=== PATIENT | female | born 1985 | race Caucasian/White ===

== ENCOUNTER 2018-03-06 03:46 | Inpatient (IN) | payer SELFPAY ==
[~2018-03-06] VITALS: Ht 160 cm; Wt 45.0 kg
[2018-03-06] VITALS (9 sets, daily range): BP systolic 120–136; BP diastolic 70–81; PULSE 68–138; RESP 16–18; TEMP 98.3–101; O2SAT 98–100
--- NOTE | 2018-03-06 04:27 | PD ---
HPI Chief Complaint: Injury Time Seen by Provider: 04:02 Travel History International Travel<30 days: No Contact w/Intl Traveler<30days: No Traveled to known affect area: No History of Present Illness HPI The patient is a 32-year-old female who presents to [facility] emergency department with a history of left knee pain. The patient reports that the left knee pain began between Tuesday and . 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 She reports that she did hit her medial left leg just below the knee on her bed a couple of days prior to having the pain, however she did not have any significant pain at that time. She reports that she did develop a small bruise at the site. She reports that the pain is along the anterior knee she reports that today she began to have swelling associated with it. The patient reports that since Tuesday the pain has been severe. She reports that she is unable to weight-bear on her left knee. She reports that her significant other has been carrying her to the bathroom. She denies any other specific injuries or trauma. She denies any IV drug use. The patient reports that the pain has been constant and sharp in character. She reports that it now is radiating up to her buttock and down past her knee into the calf. She denies having any redness. She denies any prior history of DVT or PE. She denies having any known recent fevers. On review of systems otherwise , she denies having any cough or congestion, neck pain, chest pain, shortness of breath, abdominal pain, vomiting, diarrhea, urinary symptoms, or neurologic symptoms. The patient's last menstrual cycle was reportedly in November 2017. She reports that she normally has regular menstrual cycles, however she has been under increased stress recently which she thinks is causing her irregular cycles. She reports that she did take a test that was negative. The patient reports that she has taken Aleve, ibuprofen, her roommates hydrocodone and Percocet for the pain. [facility] Past Medical History Narrative Medical The patient's past medical history is reportedly none. Medical History: Denies Significant Hx Diminished Hearing: No Tetanus Vaccination: Unknown Influenza Vaccination: No ?: Unknown LMP: unsure when last period was "long time" Past Surgical History Surgical History: No Previous Surgery Social History Alcohol Use: No Tobacco Use: Yes (5 cigarettes per day) Substance Use: Yes (marijauna) Allergies-Medications (Allergen,Severity, Reaction): Coded Allergies: No Known Allergies (Unverified , 03/06/18) Review of Systems Except as stated in HPI: all other systems reviewed are Neg General / Constitutional: No: Fever Eyes: No: Visual changes HENT: No: Headaches Cardiovascular: No: Chest Pain or Discomfort Respiratory: No: Shortness of Breath Gastrointestinal: No: Nausea, Vomiting, Diarrhea, Abdominal Pain Genitourinary: No: Dysuria Musculoskeletal: Positive: Arthralgias, Limited ROM, Edema, Pain Skin: No Rash Neurologic: No: Weakness Psychiatric: No: Depression Endocrine: No: Polydipsia Hematologic/Lymphatic: No: Easy Bruising Physical Exam Narrative General: The patient is a well-developed well-nourished female, tearful on examination, intermittently crying related to left knee pain. Head and Neck exam: Head is normocephalic atraumatic. Eyes: EOMI, pupils are equal round and reactive to light. Nose: Midline septum with pink mucous membranes Mouth: Dentition unremarkable. Moist mucus membranes. Posterior oropharynx is not erythematous. No tonsillar hypertrophy. Uvula midline. Airway patent. Neck: No palpable lymphadenopathy. No nuchal rigidity. No thyromegaly. Cardiovascular: Sinus tachycardia in the 120s without murmurs, gallops, or rubs. No pulse deficit to the extremities on simultaneous auscultation and palpation of her radial artery. Lungs: Clear to auscultation bilaterally. No wheezes, rhonchi, or rales. Abdomen: Soft, without tenderness to palpation in all 4 quadrants of the abdomen. No guarding, rebound, or rigidity. Normal bowel sounds are audible. No tenderness on palpation at McBurney's point. Extremities: No clubbing, cyanosis, or edema. The area of interest is the left knee. The patient has swelling along the medial aspect of the left knee with tenderness on palpation of the distal quadriceps medial aspect. The patient maintains her her leg flexed at the knee and hip holding her leg up against her body. The patient has decreased range of motion with extension of her leg. The patient reports that she cannot extend her leg fully related to pain. 2+ pulses in all 4 extremities. No calf tenderness on palpation. Back: No spinous process tenderness to palpation. No costovertebral angle tenderness to palpation. Neurologic Exam: Grossly nonfocal. Skin Exam: No rash noted. Intact skin that is warm and dry. Data Data Last Documented VS Vital Signs Date Time Temp Pulse Resp B/P (MAP) Pulse Ox O2 Delivery O2 Flow Rate FiO2 03/06/18 03:52 98.4 138 18 136/81 (99) 100 Orders Orders Electrocardiogram (03/06/18 04:13) Complete Blood Count With Diff (03/06/18 04:13) Comprehensive Metabolic Panel (03/06/18 04:13) Creatine Kinase (Cpk) (03/06/18 04:13) Ckmb (Isoenzyme) Profile (03/06/18 04:13) Troponin I (03/06/18 04:13) Prothrombin Time / Inr (Pt) (03/06/18 04:13) Act Partial Throm Time (Ptt) (03/06/18 04:13) C-Reactive Protein (Crp) (03/06/18 04:13) Urinalysis - C+S If Indicated (03/06/18 04:13) Westergren Sedimentation Rate (03/06/18 04:13) Magnesium (Mg) (03/06/18 04:13) Thyroid Stimulating Hormone (03/06/18 04:13) Iv Access Insert/Monitor (03/06/18 04:13) Ecg Monitoring (03/06/18 04:13) Oximetry (03/06/18 04:13) Ed Urine Pregnancytest Poc (03/06/18 04:13) Drug Screen, Random Urine (03/06/18 04:13) Knee, Complete (4vws) (03/06/18 ) Sodium Chlor 0.9% 1000 Ml Inj (Ns 1000 M (03/06/18 04:30) Ketorolac Inj (Toradol Inj) (03/06/18 04:30) Ct Knee W Iv Contrast (03/06/18 ) Urine Culture (03/06/18 05:02) Lactic Acid Sepsis Protocol (03/06/18 06:02) Blood Culture (03/06/18 06:02) Piperacil-Tazo 3.375 Gm Premix (Zosyn 3. (03/06/18 06:15) Vancomycin Inj (Vancomycin Inj) (03/06/18 06:15) Iohexol 350 Inj (Omnipaque 350 Inj) (03/06/18 06:08) Admit Order (Ed Use Only) (03/06/18 06:14) Labs Laboratory Tests Test 03/06/18 04:47 03/06/18 05:02 White Blood Count 26.7 TH/MM3 Red Blood Count 4.28 MIL/MM3 Hemoglobin 12.6 GM/DL Hematocrit 36.9 % Mean Corpuscular Volume 86.2 FL Mean Corpuscular Hemoglobin 29.4 PG Mean Corpuscular Hemoglobin Concent 34.1 % Red Cell Distribution Width 13.2 % Platelet Count 357 TH/MM3 Mean Platelet Volume 9.2 FL Neutrophils (%) (Auto) 88.5 % Lymphocytes (%) (Auto) 3.5 % Monocytes (%) (Auto) 7.9 % Eosinophils (%) (Auto) 0.0 % Basophils (%) (Auto) 0.1 % Neutrophils # (Auto) 23.7 TH/MM3 Lymphocytes # (Auto) 0.9 TH/MM3 Monocytes # (Auto) 2.1 TH/MM3 Eosinophils # (Auto) 0.0 TH/MM3 Basophils # (Auto) 0.0 TH/MM3 CBC Comment DIFF FINAL Differential Comment Erythrocyte Sedimentation Rate 14 mm/hr Prothrombin Time 11.9 SEC Prothromb Time International Ratio 1.2 RATIO Activated Partial Thromboplast Time 31.1 SEC Blood Urea Nitrogen 6 MG/DL Creatinine 0.72 MG/DL Random Glucose 123 MG/DL Total Protein 7.6 GM/DL Albumin 3.8 GM/DL Calcium Level 8.6 MG/DL Magnesium Level 2.0 MG/DL Alkaline Phosphatase 57 U/L Aspartate Amino Transf (AST/SGOT) 8 U/L Alanine Aminotransferase (ALT/SGPT) 14 U/L Total Bilirubin 0.8 MG/DL Sodium Level 139 MEQ/L Potassium Level 3.4 MEQ/L Chloride Level 106 MEQ/L Carbon Dioxide Level 21.7 MEQ/L Anion Gap 11 MEQ/L Estimat Glomerular Filtration Rate 94 ML/MIN Total Creatine Kinase 56 U/L Troponin I LESS THAN 0.02 NG/ML C-Reactive Protein 19.00 MG/DL Thyroid Stimulating Hormone 3rd Gen 1.110 uIU/ML Urine Color YELLOW Urine Turbidity HAZY Urine pH 6.5 Urine Specific [place] 1.022 Urine Protein 30 mg/dL Urine Glucose (UA) 70 mg/dL Urine Ketones TRACE mg/dL Urine Occult Blood NEG Urine Nitrite NEG Urine Bilirubin NEG Urine Urobilinogen 2.0 MG/DL Urine Leukocyte Esterase LARGE Urine RBC 21 /hpf Urine WBC 19 /hpf Urine Squamous Epithelial Cells 36 /hpf Urine Bacteria MOD /hpf Urine Mucus FEW /lpf Microscopic Urinalysis Comment CULTURE INDICATED Urine Opiates Screen POS Urine Barbiturates Screen NEG Urine Amphetamines Screen NEG Urine Benzodiazepines Screen NEG Urine Cocaine Screen POS Urine Cannabinoids Screen NEG MDM Medical Decision Making Medical Screen Exam Complete: Yes Emergency Medical Condition: Yes Medical Record Reviewed: Yes Differential Diagnosis Septic arthritis, versus osteomyelitis, versus internal derangement of the knee , versus tendinitis Narrative Course During the course of the patient's emergency department visit, the patient's history, examination, and differential diagnosis were reviewed with the patient. The patient was placed on a site monitor with oximetry and frequent blood pressure monitoring. The patient had IV access obtained and blood work sent for analysis. A knee x-ray was ordered. The patient was noted to be tachycardic, however it was unclear whether this was related to pain or could be related to an infectious process. The patient had a EKG done on arrival that shows a sinus rhythm with, heart rate of 78, QRS duration 90 ms, QTC [address] segment elevation. Tremulous baseline is noted which could affect interpretation. The patient was initially provided normal saline 1 L IV fluid bolus, Toradol 15 mg IV for pain. The patient's laboratory studies were reviewed and remarkable for a white count of 26.7, hemoglobin 12.6, platelets 357 with 88.5 neutrophils, lymphocytes 3.5. Blood cultures 2 were sent for analysis. The patient was consented for arthrocentesis of the left knee to evaluate for possible underlying septic arthritis, sedimentation rate was 14 decreasing the likelihood of osteomyelitis. CMP is remarkable for a potassium of 3.4, BUN 6, glucose 123, AST 8, cardiac enzymes within normal limits, C-reactive protein is elevated at 19, TSH within normal limits. PT 11.9, INR 1.2, PTT 31.1, urine drug screen is positive for opiates and cocaine, urinalysis shows 30 protein 70 glucose trace ketones large leukocyte esterase 21 RBCs WBCs 19, moderate bacteria, culture indicated. Radiology studies were reviewed and remarkable for a left knee x-ray that shows no acute abnormality. Arthrocentesis of the left knee was done by me. Yellow cloudy fluid was obtained. The patient was then started on broad-spectrum antibiotic. A call has been placed out to the orthopedic physician on-call, Dr. Negron regarding this patient's case. A call has been placed out to the hospitalist for admission. The patient's results were discussed with the patient, including the plan of care. I explained that further testing and/ or monitoring is indicated based on the patient's history, examination, and/ or laboratory findings. Therefore, I recommended admission for additional evaluation. The patient expressed understanding and was agreeable with this plan. The patient was admitted to the hospital in guarded condition and sent to a bed under the care of the [facility] service. I spoke to the physician hearing aid assistant for Dr. Negron. We will see the patient in consultation. The patient's results were discussed with the patient, including the plan of care. I explained that further testing and/ or monitoring is indicated based on the patient's history, examination, and/ or laboratory findings. Therefore, I recommended admission for additional evaluation. The patient expressed understanding and was agreeable with this plan. The patient was admitted to the hospital in guarded condition and sent to a bed under the care of the [facility] service. Critical Care Narrative Aggregate critical care time was 32 minutes. Time to perform other separately billable procedures was not included in the critical care time. My time did not include minutes spent treating any other patients simultaneously or on activities that did not directly contribute to the patient's treatment. The services I provided to this patient were to treat and/or prevent clinically significant deterioration that could result in: Cardiovascular collapse from sepsis, versus fluid overload from crystalloid resuscitation, versus progressive damage to the left knee joint I provided critical care services requiring my management, as noted below: Chart data review, documentation time, medication orders and management, vital sign assessments/reviewing monitor data, ordering and reviewing lab tests, ordering and interpreting/reviewing x-rays and diagnostic studies, care of the patient and discussion of the patient with the admitting physicians. Procedures Procedure Narrative Joint aspiration: The patient consented to left knee arthrocentesis. The patient was placed supine. The patient's medial left knee was prepped with chlorhexidine and the patient was sterilely draped. 1% lidocaine was used to anesthetize superficially over the parapatellar area, medial aspect. A 21- gauge needle was used to aspirate cloudy yellow fluid from the joint space. The patient tolerated the procedure well. A Band-Aid was applied. The patient' s synovial fluid was sent for analysis. Sepsis Criteria SIRS Criteria (2 or more): Heart rate over 90, WBC > 37706, < 4000 or > 10% bands Sepsis Criteria (SIRS+source): Infect source susp/known Criteria Outcome: Meets SIRS criteria, Meets sepsis criteria Physician Communication Physician Communication The patient's case including history, pertinent physical examination findings, and laboratory studies were discussed with Dr. Luis. It [facility] Diagnosis Primary Impression: Left knee pain Qualified Codes: M25.562 - Pain in left knee Additional Impressions: Leukocytosis Qualified Codes: D72.829 - Elevated white blood cell count, unspecified Sepsis Qualified Codes: A41.9 - Sepsis, unspecified organism Admitting Information Admitting Physician Requests: it Virginie Menjivar MD Mar 06, 2018 04:27
[2018-03-06] MEDS ORDERED: SODIUM CHLOR 0.9% 1000 ML INJ 1,000 ML IV ONE (04:30)
[2018-03-06] MEDS ORDERED: KETOROLAC TROMETHAMINE 30 MG/ML (IVP) VIAL IV PUSH ONE (04:30)
--- NOTE | 2018-03-06 05:01 | RADRPT ---
EXAM DATE: 03/06/2018 4:43 AM EDT AGE/SEX: 32 years / Female INDICATIONS: Severe nontraumatic left knee pain over several days. Tonight patient cannot bear the p ain or move the leg. CLINICAL DATA: This is the patient's initial encounter. Patient reports that signs and symptoms have been present for 4 - 6 days and indicates a pain score of 10/10. MEDICAL/SURGICAL HISTORY: None. None. COMPARISON: No prior exams available for comparison. FINDINGS: 4 views of the left knee. Bone alignment within normal limits. No evidence of fracture. No joint narr owing. No evidence of joint effusion. CONCLUSION: Left knee series within normal limits. Electronically signed by: Jose Juan Holloway MD 03/06/2018 4:59 AM EDT
[2018-03-06 05:02] LABS: AUTOMATED NEUTROPHIL # 23.7 TH/MM3 (1.8-7.7); BASOPHIL % 0.1 % (0.0-2.0); HEMATOCRIT 36.9 % (35.0-46.0); HEMOGLOBIN 12.6 GM/DL (11.6-15.3); LYMPH % 3.5 % (9.0-44.0); LYMPHOCYTE # 0.9 TH/MM3 (1.0-4.8); MEAN CELL VOLUME 86.2 FL (80.0-100.0); MEAN CORPUSCULAR HEMOGLOBIN 29.4 PG (27.0-34.0); MEAN CORPUSCULAR HGB CONC 34.1 % (32.0-36.0); MEAN PLATELET VOLUME 9.2 FL (7.0-11.0); MONO % 7.9 % (0.0-8.0); MONOCYTE # 2.1 TH/MM3 (0-0.9); NEUT % 88.5 % (16.0-70.0); PLATELET COUNT 357 TH/MM3 (150-450); RED BLOOD COUNT 4.28 MIL/MM3 (4.00-5.30); RED CELL DISTRIBUTION WIDTH 13.2 % (11.6-17.2); WHITE BLOOD COUNT 26.7 TH/MM3 (4.0-11.0)
[2018-03-06 05:10] LABS: INTERNATIONAL NORMALIZED RATIO 1.2 RATIO; PROTHROMBIN TIME - PATIENT 11.9 SEC (9.8-11.6)
[2018-03-06 05:12] LABS: ALBUMIN 3.8 GM/DL (3.4-5.0); ALT (GPT) 14 U/L (10-53); AST (GOT) 8 U/L (15-37); BICARBONATE 21.7 MEQ/L (21.0-32.0); BLOOD UREA NITROGEN 6 MG/DL (7-18); CALCIUM 8.6 MG/DL (8.5-10.1); CHLORIDE 106 MEQ/L (98-107); CREATININE 0.72 MG/DL (0.50-1.00); GLOMERULAR FILTRATION RATE 94 ML/MIN (>89); GLUCOSE,RANDOM 123 MG/DL (74-106); SODIUM (NA) 139 MEQ/L (136-145)
[2018-03-06 05:12] LABS: BACTERIA, URINE MOD /hpf; BILIRUBIN, URINE NEG (NEG); BLOOD, URINE NEG (NEG); GLUCOSE,URINE 70 mg/dL (NEG); KETONE, URINE TRACE mg/dL (NEG); MUCUS URINE FEW /lpf (OCC); NITRITE,URINE NEG (NEG); PH, URINE 6.5 (5.0-8.5); SQUAMOUS EPITHELIAL CELL URINE 36 /hpf (0-5); URINE COLOR YELLOW (YELLW/STRAW); URINE LEUKOCYTE ESTERASE LARGE (NEG)
[2018-03-06 05:21] LABS: ALKALINE PHOSPHATASE 57 U/L (45-117); TOTAL BILIRUBIN ADULT 0.8 MG/DL (0.2-1.0); TOTAL PROTEIN 7.6 GM/DL (6.4-8.2); TROPONIN I LESS THAN 0.02 NG/ML (0.02-0.05)
[2018-03-06] MEDS ORDERED: IOHEXOL 350 MG/ML 10 ML VIAL (for RAD DIAG) IVCONTRAST ONE (06:08)
[2018-03-06] MEDS ORDERED: MAGNESIUM HYDROXIDE SUSP 30 ML CUP PO PRN (06:15)
[2018-03-06] MEDS ORDERED: BISACODYL 10 MG SUPP RECTAL PRN (06:15)
[2018-03-06] MEDS ORDERED: PIPERACIL-TAZO 3.375 GM PREMIX 50 ML IV ONE (06:15)
[2018-03-06] MEDS ORDERED: METOCLOPRAMIDE HCL 10 MG/2 ML VIAL IV PUSH PRN (06:15)
[2018-03-06] MEDS ORDERED: SODIUM CHLORIDE 0.9% FLUSH 10 ML FLUSH IV FLUSH PRN (06:15)
[2018-03-06] MEDS ORDERED: Vancomycin Consult Pharmacy 1 EA OTHER SCH (06:15)
[2018-03-06] MEDS ORDERED: SENNOSIDES 8.6 MG TAB PO PRN (06:15)
[2018-03-06] MEDS ORDERED: VANCOMYCIN INJ 1,000 MG in SODIUM CHLOR 0.9% 250 ML INJ 250 ML IV ONE (06:15)
[2018-03-06] MEDS ORDERED: LACTULOSE SYRUP 20 GM/30 ML CUP PO PRN (06:15)
--- NOTE | 2018-03-06 06:24 | RADRPT ---
EXAM DATE: 03/06/2018 6:16 AM EDT AGE/SEX: 32 years / Female INDICATIONS: Left knee pain with negative x-rays; rule out osteomyelitis. CLINICAL DATA: This is the patient's initial encounter. Patient reports that signs and symptoms have been present for 2 days and indicates a pain score of 10/10. MEDICAL/SURGICAL HISTORY: None. None. RADIATION DOSE: 7.29 CTDI (mGy) COMPARISON: No prior exams available for comparison. TECHNIQUE: Multiple contiguous axial images were acquired using a multirow detector CT scanner after the intravenous administration of 96 ml Omnipaque 350 (iohexol) nonionic water-soluble contrast as a single exam dose. Multiplanar reconstruction was performed in the sagittal and coronal planes. Usi ng automated exposure control and adjustment of the mA and/or kV according to patient size, radiation dose was kept as low as reasonably achievable to obtain optimal diagnostic quality images. FINDINGS: Bone alignment within normal limits. No evidence of fracture. Small knee joint effusion. Quadriceps tendon and patellar tendon are intact. Cruciate ligaments are grossly intact. Integrity of the menisci cannot be evaluated effectively on CT without intra-articular contrast. CONCLUSION: Trace joint effusion. Otherwise within normal limits. Electronically signed by: Jose Juan Holloway MD 03/06/2018 6:22 AM EDT
[2018-03-06] MEDS: SODIUM CHLOR 0.9% 1000 ML INJ 1,000 ML IV SCH ×2 (06:43→16:10)
[2018-03-06] MEDS: MORPHINE SULFATE 4 MG/ML INJ IV PUSH PRN ×5 (06:43→22:04)
[2018-03-06] MEDS: ACETAMINOPHEN 325 MG TAB PO PRN (06:45)
[2018-03-06 08:07] LABS: WBC, SYNOVIAL FLUID 31200 /MM3 (0-200)
[2018-03-06] MEDS ORDERED: POTASSIUM CHLORIDE 10 MEQ CONTROLLED RELEASE TAB PO ONE (08:15)
[2018-03-06] MEDS: DOCUSATE SODIUM 50 MG/SENNA 8.6 MG TAB PO SCH ×2 (08:37→20:30)
[2018-03-06] MEDS: SODIUM CHLORIDE 0.9% FLUSH 10 ML FLUSH IV FLUSH SCH ×2 (08:52→20:30)
[2018-03-06] MEDS ORDERED: METOPROLOL TARTRATE 25 MG TAB PO PRN (09:30)
[2018-03-06] MEDS ORDERED: INSULIN HUMAN REGULAR 1,000 UNITS/10 ML VIAL SQ PRN (09:30)
[2018-03-06] MEDS ORDERED: POVIDONE IODINE 5% (ANTISEPSIS KIT) 4 APPLICATIONS EACH NARE PRN (09:30)
[2018-03-06] MEDS ORDERED: CHLORHEXIDINE GLUCONATE 2 % 1 PACK (2 CLOTHS) TOPICAL PRN (09:30)
[2018-03-06] MEDS ORDERED: SODIUM CHLORID 0.9% 500 ML IV PRN (09:30)
[2018-03-06] MEDS ORDERED: LACTATED RINGER'S 1000 ML IV PRN (09:30)
--- NOTE | 2018-03-06 10:35 | HHI.HP ---
[facility] No Primary Care Physician Admission Diagnosis left knee pain r/o septic arthritis, sepsis Diagnoses: Chief Complaint: Left knee pain Travel History International Travel<30 Days: No Contact w/Intl Traveler <30 Da: No Traveled to Known Affected Are: No Sepsis Criteria SIRS Criteria (2 or more): Temp > 100.9 or < 96.8, Heart rate over 90, WBC > 87624, < 4000 or > 10% bands Sepsis Criteria (SIRS+source): Infect source susp/known Criteria Outcome: Meets sepsis criteria History of Present Illness This is a 33-year-old female who presents to the emergency room complaining of left knee pain. 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 Over the past several days, her left knee pain has worsened temporarily relieved with icing and elevation. It is severe that she is unable to bear weight. She denies IV drug use but admits to marijuana and cocaine. 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 Does not remember recent significant trauma or sustaining an open wound. Reports of low-grade fever. In the emergency department, joint aspiration was performed with cloudy yellow aspirate. She was then given IV vancomycin and Zosyn. Currently seen in the preop area awaiting orthopedic intervention. All other systems reviewed negative Review of Systems Except as stated in HPI: all other systems reviewed are Neg Past Family Social History Past Medical History Denies. LMP sometime in November. She did do tests 1 month apart both negative last performed over a month ago Past Surgical History Denies Reported Medications None except OTC Allergies: Coded Allergies: No Known Allergies (Unverified , 03/06/18) Family History No CAd or CVA Social History Occasional alcohol and tobacco use Physical Exam Vital Signs Vital Signs Date Time Temp Pulse Resp B/P (MAP) Pulse Ox O2 Delivery O2 Flow Rate FiO2 03/06/18 09:00 99.0 74 18 121/70 (87) 98 03/06/18 07:50 99.8 84 16 120/77 (91) 100 03/06/18 07:20 82 16 100 Room Air 03/06/18 07:20 100.0 82 16 122/80 (94) 100 Room Air 03/06/18 07:15 16 03/06/18 06:43 101.0 98 18 122/73 (89) 98 Room Air 03/06/18 03:52 98.4 138 18 136/81 (99) 100 Physical Exam GENERAL: This is a well-nourished, well-developed patient, in no apparent distress. SKIN: No rashes, ecchymoses or lesions. Cool and dry. HEAD: Atraumatic. Normocephalic. No temporal or scalp tenderness. EYES: Pupils equal round and reactive. Extraocular motions intact. No scleral icterus. No injection or drainage. ENT: Nose without bleeding, purulent drainage or septal hematoma. Throat without erythema, tonsillar hypertrophy or exudate. Uvula midline. Airway patent. NECK: Trachea midline. No JVD or lymphadenopathy. Supple, nontender, no meningeal signs. CARDIOVASCULAR: Regular rate and rhythm without murmurs, gallops, or rubs. RESPIRATORY: Clear to auscultation. Breath sounds equal bilaterally. No wheezes , rales, or rhonchi. GASTROINTESTINAL: Abdomen soft, non-tender, nondistended. No guarding. MUSCULOSKELETAL: Extremities without clubbing, cyanosis, or edema. Left knee slightly swollen over medial aspect with decreased range of motion with extension and flexion NEUROLOGICAL: Awake and alert. Cranial nerves II through XII intact. Motor and sensory grossly within normal limits. Five out of 5 muscle strength in all muscle groups. Normal speech. Laboratory Laboratory Tests Test 03/06/18 04:47 03/06/18 05:02 03/06/18 06:34 03/06/18 06:40 White Blood Count 26.7 Red Blood Count 4.28 Hemoglobin 12.6 Hematocrit 36.9 Mean Corpuscular Volume 86.2 Mean Corpuscular Hemoglobin 29.4 Mean Corpuscular Hemoglobin Concent 34.1 Red Cell Distribution Width 13.2 Platelet Count 357 Mean Platelet Volume 9.2 Neutrophils (%) (Auto) 88.5 Lymphocytes (%) (Auto) 3.5 Monocytes (%) (Auto) 7.9 Eosinophils (%) (Auto) 0.0 Basophils (%) (Auto) 0.1 Neutrophils # (Auto) 23.7 Lymphocytes # (Auto) 0.9 Monocytes # (Auto) 2.1 Eosinophils # (Auto) 0.0 Basophils # (Auto) 0.0 CBC Comment DIFF FINAL Differential Comment Erythrocyte Sedimentation Rate 14 Prothrombin Time 11.9 Prothromb Time International Ratio 1.2 Activated Partial Thromboplast Time 31.1 Blood Urea Nitrogen 6 Creatinine 0.72 Random Glucose 123 Total Protein 7.6 Albumin 3.8 Calcium Level 8.6 Magnesium Level 2.0 Alkaline Phosphatase 57 Aspartate Amino Transf (AST/SGOT) 8 Alanine Aminotransferase (ALT/SGPT) 14 Total Bilirubin 0.8 Sodium Level 139 Potassium Level 3.4 Chloride Level 106 Carbon Dioxide Level 21.7 Anion Gap 11 Estimat Glomerular Filtration Rate 94 Total Creatine Kinase 56 Troponin I LESS THAN 0.02 C-Reactive Protein 19.00 Thyroid Stimulating Hormone 3rd Gen 1.110 Urine Color YELLOW Urine Turbidity HAZY Urine pH 6.5 Urine Specific [place] 1.022 Urine Protein 30 Urine Glucose (UA) 70 Urine Ketones TRACE Urine Occult Blood NEG Urine Nitrite NEG Urine Bilirubin NEG Urine Urobilinogen 2.0 Urine Leukocyte Esterase LARGE Urine RBC 21 Urine WBC 19 Urine Squamous Epithelial Cells 36 Urine Bacteria MOD Urine Mucus FEW Microscopic Urinalysis Comment CULTURE INDICATED Urine Opiates Screen POS Urine Barbiturates Screen NEG Urine Amphetamines Screen NEG Urine Benzodiazepines Screen NEG Urine Cocaine Screen POS Urine Cannabinoids Screen NEG Synovial Fluid Color YELLOW Synovial Fluid Appearance MARKED Synovial Fluid WBC 60670 Synovial Fluid RBC 440 Synovial Fluid Neutrophils 90 Synovial Fluid Lymphocytes 0 Synovial Fluid Monocytes 5 Synovial Fluid Histiocytes 5 Synovial Fluid Crystals NONE Lactic Acid Level 0.8 Date/Time Source Procedure Growth Status 03/06/18 06:40 Blood Peripheral Aerobic Blood Culture Pending Received 03/06/18 06:40 Blood Peripheral Anaerobic Blood Culture Pending Received 03/06/18 06:34 Fluid Synovial Fluid Gram Stain - Final Resulted 03/06/18 06:34 Fluid Synovial Fluid Body Fluid Culture Pending Resulted 03/06/18 05:02 Urine Random Urine Urine Culture Pending Received Result Diagram: 03/06/18 0447 03/06/18 0447 Caprini VTE Risk Assessment Caprini VTE Risk Assessment: No/Low Risk (score <= 1) Caprini Risk Assessment Model Point Value = 1 Point Value = 2 Point Value = 3 Point Value = 5 Age 41-60 Minor surgery BMI > 25 kg/m2 Swollen legs Varicose veins or History of unexplained or recurrent spontaneous Oral contraceptives or hormone replacement Sepsis (< 1 month) Serious lung disease, including pneumonia (< 1 month) Abnormal pulmonary function Acute myocardial infarction Congestive heart failure (< 1 month) History of inflammatory bowel disease Medical patient at bed rest Age 61-74 Arthroscopic surgery Major open surgery (> 45 min) Laparoscopic surgery (> 45 min) Malignancy Confined to bed (> 72 hours) Immobilizing plaster cast Central venous access Age >= 75 History of VTE Family history of VTE Factor V Leiden Prothrombin [id number] Lupus anticoagulant Anticardiolipin antibodies Elevated serum homocysteine Heparin-induced thrombocytopenia Other congenital or acquired thrombophilia Stroke (< 1 month) Elective arthroplasty Hip, pelvis, or leg fracture Acute spinal cord injury (< 1 month) Prophylaxis Regimen Total Risk Factor Score Risk Level Prophylaxis Regimen 0-1 Low Early ambulation 2 Moderate Order ONE of the following: *Sequential Compression Device (SCD) *Heparin 5000 units SQ BID 3-4 Higher Order ONE of the following medications: *Heparin 5000 units SQ TID *Enoxaparin/Lovenox 40 mg SQ daily (WT < 150 kg, CrCl > 30 mL/min) *Enoxaparin/Lovenox 30 mg SQ daily (WT < 150 kg, CrCl > 10-29 mL/min) *Enoxaparin/Lovenox 30 mg SQ BID (WT < 150 kg, CrCl > 30 mL/min) AND/OR *Sequential Compression Device (SCD) 5 or more Highest Order ONE of the following medications: *Heparin 5000 units SQ TID (Preferred with Epidurals) *Enoxaparin/Lovenox 40 mg SQ daily (WT < 150 kg, CrCl > 30 mL/min) *Enoxaparin/Lovenox 30 mg SQ daily (WT < 150 kg, CrCl > 10-29 mL/min) *Enoxaparin/Lovenox 30 mg SQ BID (WT < 150 kg, CrCl > 30 mL/min) AND *Sequential Compression Device (SCD) Assessment and Plan Problem List: (1) Sepsis ICD Code: A41.9 - Sepsis, unspecified organism Status: Acute (2) Left knee pain ICD Code: M25.562 - Pain in left knee Status: Acute Assessment and Plan This is a 33-year-old female who presents to the emergency room complaining of left knee pain and swelling with decreased range of motion. She also has fever. In the emergency department, joint aspiration was performed with cloudy yellow aspirate. Septic left knee joint. Some level fluid WBC over 31,000. Continue IV vancomycin and cefepime and pain management with oxycodone and morphine sulfate. Patient counseled regarding narcotics. Orthopedic surgery for washout. Follow-up cultures. Consider infectious disease consultation Hypokalemia. Replace with 30 mEq p.o. potassium 1. Abnormal urinalysis. No UTI symptoms. Follow-up urine culture Polysubstance abuse. Counseled DVT prophylaxis with SCD and early ambulation Discussed Condition With pt Problem Qualifiers (1) Sepsis: Qualified Codes: A41.9 - Sepsis, unspecified organism (2) Left knee pain: Qualified Codes: M25.562 - Pain in left knee Liban Schulz MD Mar 06, 2018 10:35
--- NOTE | 2018-03-06 11:10 | MB ---
cc: Rodrigo Negron MD DATE: 03/06/2018 REASON FOR CONSULTATION: Probable septic left knee. REFERRING PHYSICIAN: Dr. Schulz HISTORY OF PRESENT ILLNESS: Marianne is a 33-year-old female who presented to the emergency room complaining of severe left knee pain. She has had intermittent knee pain in the past. She has had increasing knee pain over the past 5 days. Over the past 2 days, the pain has been severe. She has been unable to stand. She is unable to bend her knee or straighten it out. She is keeping her knee in a flexed position because of pain. She reports a low-grade fever. She denies a history of IV drug use. She did have a knee aspirate in the emergency department. This was negative for crystals and did have elevated white blood cell count. She is currently awake and alert in the emergency department. Her only complaint is her left knee. She denies any traumatic injuries. PAST MEDICAL HISTORY: ILLNESSES: None. ALLERGIES: NONE. MEDICATIONS: None. SURGERIES: None. SOCIAL HISTORY: The patient drinks alcohol. She did test positive for cocaine. She does use tobacco. FAMILY HISTORY: Noncontributory. REVIEW OF SYSTEMS: The patient denies headache, visual changes, neck pain, chest pain, abdominal pain, nausea, vomiting, recent weight loss or numbness or tingling of extremities. She complains of left knee pain. The pain is progressively worsening. She also complains of low-grade subjective fevers. LABORATORY DATA: The patient has white blood cell count of 26.7 with a sedimentation rate of 14. INR is 1.2. C-reactive protein is 19. Potassium 3.4. Synovial fluid from left knee is negative for crystals and has 31,000 white blood cells. IMAGING STUDIES: X-rays and CT scan of the left knee were reviewed. There is no evidence of acute fracture or injury. There is a small effusion noted. PHYSICAL EXAMINATION: GENERAL: A thin 32-year-old female. She is awake and alert. She is anxious. She is crying and states that she is in severe pain. VITAL SIGNS: Temperature 99.0, pulse 74, respirations 18, blood pressure 121/70, O2 saturation 98% on room air. HEENT: Head: The patient is normocephalic. Pupils are equal. NECK: Soft, nontender. The trachea is in the midline. ABDOMEN: Soft, nontender, nondistended. EXTREMITIES: Examination of bilateral upper extremities reveals no pain with shoulder, elbow or wrist motion. Skin is intact to both hands: Radial pulses are palpable. Sensation intact in all fingers. Examination of right leg reveals no pain with hip, knee or ankle motion. Skin is intact. Dorsalis pedis pulse is palpable. Sensation intact. Examination of left leg reveals no pain with hip or ankle motion. Skin is intact. Dorsalis pedis pulse is palpable. Examination of her knee reveals essentially no motion. She has had her knee in a flexed position to 90 degrees. She will not straighten or extend her knee secondary to pain. Her knee is slightly warm. There is a small effusion noted. IMPRESSION: Left knee pain with swelling. PLAN: Treatment options were discussed with the patient. At this point, it is not clear that is the source of her pain. It is quite possible that she has a knee infection. I explained to her that we would not know for sure if she has an infection of the knee for probably 2 days. She states that she would prefer to go ahead with surgery for irrigation and debridement, even though we are not certain that she truly has an infection. The risks of surgery include bleeding, infection, injuries to arteries, nerves or blood vessels, recurrent infection, as well as medical complications associated with anesthesia were discussed. All questions were answered. I will plan on surgery for irrigation and debridement with arthrotomy of left knee today. A mid-level provider in my office, nurse practitioner or PA, may see this patient on a follow-up basis and continue to implement the objective of this plan including: Starting or adjusting medications, injections of muscle, tendon, bursa or joints, cast application, orthotic or brace application, physical therapy, further radiographic studies including x-ray, MRI, CT, ultrasounds or bone scan, vascular studies, neurologic studies, or other specialist consultations, and proceeding with surgical management as appropriate. MD VIKTOR Chacko/RACQUEL , 10:52 AM , 11:09 AM
[2018-03-06] MEDS ORDERED: GENTAMICIN SULFATE 80 MG/2 ML VIAL ONE (11:17)
[2018-03-06] MEDS ORDERED: ceFAZolin INJ 1,000 MG VIAL ONE (11:18)
[2018-03-06] MEDS ORDERED: ACETAMINOPHEN 1000 MG/100 ML 100 ML IV ONE (11:24)
[2018-03-06] MEDS ORDERED: HYDROmorphone HCL PF 2 MG/ML VIAL ONE (11:25)
--- NOTE | 2018-03-06 11:58 | PD.OP ---
cc: Rodrigo Choudhury MD Operative Report Date of Surgery: Mar 06, 2018 Preoperative Diagnosis: Probable septic arthritis left knee Postoperative Diagnosis: Procedure: Left knee arthrotomy with irrigation and debridement Anesthesia: General Surgeon: Rodrigo Choudhury Sugarcane Research Technician(s): Saul Chan PA-C The surgical procedure was assisted by my physician assistant vice president. My P.A. presence was necessary throughout this case for the manipulation and positioning of the surgical extremity. My P.A. was assisting me throughout the duration of this procedure. The skill set of a physician assistant vice president was medically necessary to complete this procedure. During the surgical case the medical or surgical instrument maker was working at the back table and the physician assistant vice president was directly assisting me. Operation and Findings: Patient was seen and evaluated preoperatively. Patient was found to have probable infection of the left knee joint. Knee effusion and erythema were noted. Left knee aspiration revealed elevated white blood cell count with no crystals. Patient had a very elevated C-reactive protein. Informed consent was obtained after detailed discussion of risk and benefits of surgery. Operative site was marked. Patient was brought to the operating room. IV sedation and GETA were administered by anesthesiologist. Operative leg was prepped with alcohol followed by Hibiclens and draped in usual sterile fashion. Timeout procedure was performed. Procedure began with a 3 cm incision over the lateral knee. Subcutaneous tissue dissected with Bovie. Iliotibial band was opened in line with fibers. The joint was now opened through arthrotomy. A moderate volume of purulent appearing fluid was found within the knee. Specimen was obtained for cultures and sensitivities. The knee joint was manipulated. The knee joint was palpated and loculations were manually debrided. A portion of the synovium was excised. After excisional debridement was complete, the wound was thoroughly irrigated with sterile saline. At this point the wound was clean. Capsule was closed with #1 PDS, Subcutaneous tissues closed with 3-0 PDS and skin was closed with 3-0 nylon. A DONNY drain was placed into the wound. Sterile dressings were applied. Patient was awakened and transferred to recovery in stable condition. Needle and sponge counts were correct Rodrigo Choudhury MD Mar 06, 2018 11:58
[2018-03-06] MEDS ORDERED: diphenhydrAMINE HCL 25 MG CAP PO PRN (12:00)
[2018-03-06] MEDS ORDERED: DEXAMETHASONE SOD PHOS 4 MG/ML VIAL IV ONE (12:00)
[2018-03-06] MEDS ORDERED: SUCCINYLCHOLINE CHLORIDE 200 MG/10 ML VIAL IV ONE (12:00)
[2018-03-06] MEDS ORDERED: PROPOFOL 200 MG/20 ML AMP IV ONE (12:00)
[2018-03-06] MEDS ORDERED: LIDOCAINE HCL 1% PF 5 ML SYRINGE OTHER ONE (12:00)
[2018-03-06] MEDS ORDERED: ROCURONIUM INJ 50 MG/5 ML SYRINGE IV PUSH ONE (12:00)
[2018-03-06] MEDS ORDERED: SODIUM CHLORID 0.9% 500 ML INJ 500 ML IV ONE (12:00)
[2018-03-06] MEDS ORDERED: Post-op Orders (for Pharmacy) XX ONE (12:00)
[2018-03-06] MEDS ORDERED: *morphine SULFATE 4 MG/ML PERIprocedure ONLY ONE ×2 (12:17→12:27)
[2018-03-06] MEDS ORDERED: MORPHINE SULFATE 4 MG/ML INJ ONE (12:21)
[2018-03-06] MEDS ORDERED: ONDANSETRON ODT 4 MG TAB PO PRN (12:30)
--- NOTE | 2018-03-06 14:44 | EKG ---
Date Performed: 03/06/2018 Time Performed: 04:46:03 PTAGE: 32 years EKG: Sinus rhythm WITH SINUS ARRHYTHMIA WITH SHORT MI INTERVAL Baseline artifact is present BORDERLINE ECG NO PREVIOUS TRACING DOCTOR: Musa Dillon Interpretating Date/Time 03/06/2018 14:42:28
[2018-03-06] MEDS: CEFEPIME INJ 1,000 MG in SODIUM CHLORIDE 0.9% INJ 100 ML IV SCH (20:30)
[2018-03-06] MEDS ORDERED: MORPHINE SULFATE 4 MG/ML INJ IV PUSH ONE (22:15)
[2018-03-06] MEDS: VANCOMYCIN INJ 750 MG in SODIUM CHLOR 0.9% 250 ML INJ 250 ML IV SCH (22:44)
[2018-03-07] VITALS (10 sets, daily range): BP systolic 117–132; BP diastolic 71–81; PULSE 67–93; RESP 16–18; TEMP 98.3–99.8; O2SAT 99–100
[2018-03-07] MEDS: SODIUM CHLOR 0.9% 1000 ML INJ 1,000 ML IV SCH ×4 (01:19→22:30)
[2018-03-07] MEDS: MORPHINE SULFATE 4 MG/ML INJ IV PUSH PRN ×5 (02:33→22:30)
[2018-03-07] MEDS: ACETAMINOPHEN 325 MG TAB PO PRN (04:39)
[2018-03-07] MEDS ORDERED: ACETAMINOPHEN/HYDROcodone 325 MG/5 MG TAB PO PRN (07:00)
--- NOTE | 2018-03-07 07:02 | PD.ORT.PN ---
Subjective Subjective Remarks POD 1 s/p I&D left knee reports significant pain in left knee Objective Vitals Vital Signs Date Time Temp Pulse Resp B/P (MAP) Pulse Ox O2 Delivery O2 Flow Rate FiO2 03/07/18 04:29 99.4 75 16 121/72 (88) 100 03/07/18 00:30 99.8 75 16 128/78 (95) 99 03/07/18 00:18 73 03/06/18 19:57 99.4 79 16 121/79 (93) 98 03/06/18 16:32 83 03/06/18 16:06 98.3 68 16 120/75 (90) 98 03/06/18 12:50 98.4 78 15 119/76 (90) 97 Room Air 03/06/18 12:48 73 03/06/18 12:30 74 15 130/85 (100) 98 Room Air 03/06/18 12:15 98.3 82 15 119/81 (94) 100 Room Air 03/06/18 09:00 99.0 74 18 121/70 (87) 98 03/06/18 07:50 99.8 84 16 120/77 (91) 100 03/06/18 07:20 82 16 100 Room Air 03/06/18 07:20 100.0 82 16 122/80 (94) 100 Room Air 03/06/18 07:15 16 I/O 03/06/18 03/06/18 03/06/18 03/07/18 03/07/18 03/07/18 07:00 15:00 23:00 07:00 15:00 23:00 Intake Total 1000 ml 1300 ml Output Total 10 ml Balance 1000 ml 1290 ml Intake IV Total 1000 ml 300 ml Other 1000 ml Output Estimated Blood Loss 10 ml # Voids 1 1 Result Diagram: 03/06/18 0447 03/06/18 0447 Objective Remarks LLE: dressings clean and dry. itnact. NVI. +drain with significant drainage Assessment & Plan Assessment and Plan 1) Left Knee I&D - POD 1 -WBAT -ROM -maintain drain -awaiting cultures -pain control Saul Chan/Transmission Maintenance Supervisor ANTOINE Mar 07, 2018 07:02
[2018-03-07] MEDS: SODIUM CHLORIDE 0.9% FLUSH 10 ML FLUSH IV FLUSH SCH ×2 (07:28→21:24)
--- NOTE | 2018-03-07 07:29 | HHI.PR ---
Subjective Remarks F/u left knee pain. C/o knee pain requiring narcs. Also complaining of not able to sleep from frequent nursing intervention Objective Vitals Vital Signs Date Time Temp Pulse Resp B/P (MAP) Pulse Ox O2 Delivery O2 Flow Rate FiO2 03/07/18 04:29 99.4 75 16 121/72 (88) 100 03/07/18 00:30 99.8 75 16 128/78 (95) 99 03/07/18 00:18 73 03/06/18 19:57 99.4 79 16 121/79 (93) 98 03/06/18 16:32 83 03/06/18 16:06 98.3 68 16 120/75 (90) 98 03/06/18 12:50 98.4 78 15 119/76 (90) 97 Room Air 03/06/18 12:48 73 03/06/18 12:30 74 15 130/85 (100) 98 Room Air 03/06/18 12:15 98.3 82 15 119/81 (94) 100 Room Air 03/06/18 09:00 99.0 74 18 121/70 (87) 98 03/06/18 07:50 99.8 84 16 120/77 (91) 100 I/O 03/06/18 03/06/18 03/06/18 03/07/18 03/07/18 03/07/18 07:00 15:00 23:00 07:00 15:00 23:00 Intake Total 1000 ml 1300 ml Output Total 10 ml Balance 1000 ml 1290 ml Intake IV Total 1000 ml 300 ml Other 1000 ml Output Estimated Blood Loss 10 ml # Voids 1 1 Result Diagram: 03/06/18 0447 03/06/18 0447 Imaging Last Impressions Lower Extremity CT 03/06/18 0000 Signed Impressions: CONCLUSION: Trace joint effusion. Otherwise within normal limits. Knee X-Ray 03/06/18 0000 Signed Impressions: CONCLUSION: Left knee series within normal limits. Objective Remarks GENERAL: This is a well-nourished, well-developed patient, in no apparent distress. SKIN: No rashes, ecchymoses or lesions. Cool and dry. CARDIOVASCULAR: Regular rate and rhythm without murmurs, gallops, or rubs. RESPIRATORY: Clear to auscultation. Breath sounds equal bilaterally. No wheezes , rales, or rhonchi. GASTROINTESTINAL: Abdomen soft, non-tender, nondistended. No guarding. MUSCULOSKELETAL: Extremities without clubbing, cyanosis, or edema. Left knee with dry dressing NEUROLOGICAL: Awake and alert. Cranial nerves II through XII intact. Motor and sensory grossly within normal limits. Five out of 5 muscle strength in all muscle groups. Normal speech. Procedures I and D left knee Reason for Continuation Last Impressions Lower Extremity CT 03/06/18 0000 Signed Impressions: CONCLUSION: Trace joint effusion. Otherwise within normal limits. Knee X-Ray 03/06/18 0000 Signed Impressions: CONCLUSION: Left knee series within normal limits. A/P Problem List: (1) Sepsis ICD Code: A41.9 - Sepsis, unspecified organism Status: Acute (2) Left knee pain ICD Code: M25.562 - Pain in left knee Status: Acute Assessment and Plan This is a 33-year-old female who presents to the emergency room complaining of left knee pain and swelling with decreased range of motion. She also has fever. In the emergency department, joint aspiration was performed with cloudy yellow aspirate. Likely Septic joint, left knee. Synovial fluid WBC over 31,000. Continue IV vancomycin and cefepime and pain management with hydrocodone and morphine sulfate. Patient counseled regarding narcotics. Wd care. Follow-up cultures. Gram-positive cocci bacteremia. Continue IV vancomycin and consult infectious disease Hypokalemia. Replace with 30 mEq p.o. potassium 1. Abnormal urinalysis. No UTI symptoms. Follow-up urine culture Polysubstance abuse. Counseled DVT prophylaxis with SCD and early ambulation Problem Qualifiers (1) Sepsis: Qualified Codes: A41.9 - Sepsis, unspecified organism (2) Left knee pain: Qualified Codes: M25.562 - Pain in left knee Liban Schulz MD Mar 07, 2018 07:29
[2018-03-07 07:49] LABS: AUTOMATED NEUTROPHIL # 17.8 TH/MM3 (1.8-7.7); BASOPHIL % 0.1 % (0.0-2.0); HEMATOCRIT 32.3 % (35.0-46.0); HEMOGLOBIN 10.6 GM/DL (11.6-15.3); LYMPH % 5.3 % (9.0-44.0); LYMPHOCYTE # 1.1 TH/MM3 (1.0-4.8); MEAN CELL VOLUME 86.6 FL (80.0-100.0); MEAN CORPUSCULAR HEMOGLOBIN 28.5 PG (27.0-34.0); MEAN CORPUSCULAR HGB CONC 32.9 % (32.0-36.0); MEAN PLATELET VOLUME 8.9 FL (7.0-11.0); MONO % 8.4 % (0.0-8.0); MONOCYTE # 1.7 TH/MM3 (0-0.9); NEUT % 86.2 % (16.0-70.0); PLATELET COUNT 263 TH/MM3 (150-450); RED BLOOD COUNT 3.73 MIL/MM3 (4.00-5.30); WHITE BLOOD COUNT 20.7 TH/MM3 (4.0-11.0)
[2018-03-07 07:58] LABS: ALBUMIN 2.8 GM/DL (3.4-5.0); ALT (GPT) 14 U/L (10-53); AST (GOT) 7 U/L (15-37); BICARBONATE 24.2 MEQ/L (21.0-32.0); BLOOD UREA NITROGEN 6 MG/DL (7-18); CALCIUM 8.3 MG/DL (8.5-10.1); CHLORIDE 107 MEQ/L (98-107); CREATININE 0.51 MG/DL (0.50-1.00); GLOMERULAR FILTRATION RATE 140 ML/MIN (>89); GLUCOSE,RANDOM 131 MG/DL (74-106); SODIUM (NA) 140 MEQ/L (136-145)
[2018-03-07 08:01] LABS: ALKALINE PHOSPHATASE 70 U/L (45-117); TOTAL BILIRUBIN ADULT 0.6 MG/DL (0.2-1.0); TOTAL PROTEIN 6.4 GM/DL (6.4-8.2)
[2018-03-07] MEDS: ACETAMINOPHEN/HYDROcodone 325 MG/7.5 MG TAB PO PRN ×4 (08:44→21:24)
[2018-03-07] MEDS: DOCUSATE SODIUM 50 MG/SENNA 8.6 MG TAB PO SCH ×2 (08:44→21:24)
[2018-03-07] MEDS: CEFEPIME INJ 1,000 MG in SODIUM CHLORIDE 0.9% INJ 100 ML IV SCH ×2 (08:45→21:24)
[2018-03-07] MEDS ORDERED: POTASSIUM CHLORIDE 10 MEQ CONTROLLED RELEASE TAB PO ONE (10:30)
[2018-03-07] MEDS: VANCOMYCIN INJ 750 MG in SODIUM CHLOR 0.9% 250 ML INJ 250 ML IV SCH ×2 (11:13→23:13)
[2018-03-07] MEDS ORDERED: PHARMACY ORDERED LAB ONE (22:45)
[2018-03-07] MEDS ORDERED: MELATONIN 5 MG TAB PO ONE (23:00)
[2018-03-08] VITALS (9 sets, daily range): BP systolic 115–158; BP diastolic 65–84; PULSE 71–116; RESP 16–18; TEMP 98.8–99.9; O2SAT 98–100
[2018-03-08] MEDS: ACETAMINOPHEN/HYDROcodone 325 MG/7.5 MG TAB PO PRN ×5 (01:04→19:59)
[2018-03-08] MEDS: MORPHINE SULFATE 4 MG/ML INJ IV PUSH PRN ×3 (03:33→11:23)
[2018-03-08] MEDS: SODIUM CHLOR 0.9% 1000 ML INJ 1,000 ML IV SCH ×2 (07:33→13:58)
[2018-03-08] MEDS: SODIUM CHLORIDE 0.9% FLUSH 10 ML FLUSH IV FLUSH SCH ×2 (07:34→19:59)
[2018-03-08] MEDS: CEFEPIME INJ 1,000 MG in SODIUM CHLORIDE 0.9% INJ 100 ML IV SCH (07:34)
[2018-03-08] MEDS: DOCUSATE SODIUM 50 MG/SENNA 8.6 MG TAB PO SCH ×2 (07:34→19:59)
[2018-03-08] MEDS: VANCOMYCIN INJ 750 MG in SODIUM CHLOR 0.9% 250 ML INJ 250 ML IV SCH (11:23)
[2018-03-08] MEDS ORDERED: IBUPROFEN 600 MG TAB PO PRN (12:45)
--- NOTE | 2018-03-08 14:39 | HHI.PR ---
Subjective Remarks This is a 33-year-old female who presents to the emergency room complaining of left knee pain. 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 Over the past several days, her left knee pain has worsened temporarily relieved with icing and elevation. It is severe that she is unable to bear weight. She denies IV drug use but admits to marijuana and cocaine. No history of STD or HOT TAMALE MAN complaints. Does not remember recent significant trauma or sustaining an open wound. Reports of low-grade fever. In the emergency department, joint aspiration was performed with cloudy yellow aspirate. She was then given IV vancomycin and Zosyn. Currently seen in the preop area awaiting orthopedic intervention. All other systems reviewed negative 6-12 F/u left knee pain. C/o knee pain requiring narcs. Also complaining of not able to sleep from frequent nursing intervention 03-08 COMPLAINS OF PAIN IN LEFT KNEE DW ID AND RN AND CM AND PT WANTS IBUPROFEN PLUS NORCO AND MORPHINE FOR PAIN WILL ADD SCHEDULED IBUPROFEN DW RN AND PT Objective Vitals Vital Signs Date Time Temp Pulse Resp B/P (MAP) Pulse Ox O2 Delivery O2 Flow Rate FiO2 03/08/18 14:23 71 03/08/18 12:00 99.3 71 18 134/75 (94) 99 03/08/18 09:09 72 03/08/18 08:00 99.9 76 16 132/82 (99) 98 03/08/18 04:18 75 03/08/18 04:00 98.9 76 18 153/84 (107) 100 03/08/18 00:00 99.2 116 18 158/76 (103) 99 03/07/18 20:00 98.3 93 18 132/71 (91) 99 03/07/18 17:47 99.2 72 18 126/79 (95) 100 03/07/18 16:09 67 I/O 03/07/18 03/07/18 03/07/18 03/08/18 03/08/18 03/08/18 07:00 15:00 23:00 07:00 15:00 23:00 Intake Total 1357.5 ml 1062 ml 1450 ml 100 ml Output Total 40 ml 40 ml Balance 1317.5 ml 1062 ml 1410 ml 100 ml Intake IV Total 1357.5 ml 1062 ml 1450 ml 100 ml Output Drainage Total 40 ml 40 ml # Voids 5 # Bowel Movements 1 Result Diagram: 03/07/18 0650 03/07/18 0650 Other Results Laboratory Tests Test 03/06/18 04:47 03/06/18 05:02 03/06/18 06:34 03/06/18 06:40 White Blood Count 26.7 TH/MM3 Red Blood Count 4.28 MIL/MM3 Hemoglobin 12.6 GM/DL Hematocrit 36.9 % Mean Corpuscular Volume 86.2 FL Mean Corpuscular Hemoglobin 29.4 PG Mean Corpuscular Hemoglobin Concent 34.1 % Red Cell Distribution Width 13.2 % Platelet Count 357 TH/MM3 Mean Platelet Volume 9.2 FL Neutrophils (%) (Auto) 88.5 % Lymphocytes (%) (Auto) 3.5 % Monocytes (%) (Auto) 7.9 % Eosinophils (%) (Auto) 0.0 % Basophils (%) (Auto) 0.1 % Neutrophils # (Auto) 23.7 TH/MM3 Lymphocytes # (Auto) 0.9 TH/MM3 Monocytes # (Auto) 2.1 TH/MM3 Eosinophils # (Auto) 0.0 TH/MM3 Basophils # (Auto) 0.0 TH/MM3 CBC Comment DIFF FINAL Differential Comment Erythrocyte Sedimentation Rate 14 mm/hr Prothrombin Time 11.9 SEC Prothromb Time International Ratio 1.2 RATIO Activated Partial Thromboplast Time 31.1 SEC Blood Urea Nitrogen 6 MG/DL Creatinine 0.72 MG/DL Random Glucose 123 MG/DL Total Protein 7.6 GM/DL Albumin 3.8 GM/DL Calcium Level 8.6 MG/DL Magnesium Level 2.0 MG/DL Alkaline Phosphatase 57 U/L Aspartate Amino Transf (AST/SGOT) 8 U/L Alanine Aminotransferase (ALT/SGPT) 14 U/L Total Bilirubin 0.8 MG/DL Sodium Level 139 MEQ/L Potassium Level 3.4 MEQ/L Chloride Level 106 MEQ/L Carbon Dioxide Level 21.7 MEQ/L Anion Gap 11 MEQ/L Estimat Glomerular Filtration Rate 94 ML/MIN Total Creatine Kinase 56 U/L Troponin I LESS THAN 0.02 NG/ML C-Reactive Protein 19.00 MG/DL Thyroid Stimulating Hormone 3rd Gen 1.110 uIU/ML Human Chorionic Gonadotropin, Quant LESS THAN 1 MIU/ML Urine Color YELLOW Urine Turbidity HAZY Urine pH 6.5 Urine Specific [place] 1.022 Urine Protein 30 mg/dL Urine Glucose (UA) 70 mg/dL Urine Ketones TRACE mg/dL Urine Occult Blood NEG Urine Nitrite NEG Urine Bilirubin NEG Urine Urobilinogen 2.0 MG/DL Urine Leukocyte Esterase LARGE Urine RBC 21 /hpf Urine WBC 19 /hpf Urine Squamous Epithelial Cells 36 /hpf Urine Bacteria MOD /hpf Urine Mucus FEW /lpf Microscopic Urinalysis Comment CULTURE INDICATED Urine Opiates Screen POS Urine Barbiturates Screen NEG Urine Amphetamines Screen NEG Urine Benzodiazepines Screen NEG Urine Cocaine Screen POS Urine Cannabinoids Screen NEG Synovial Fluid Color YELLOW Synovial Fluid Appearance MARKED Synovial Fluid WBC 20282 /MM3 Synovial Fluid RBC 440 /MM3 Synovial Fluid Neutrophils 90 % Synovial Fluid Lymphocytes 0 % Synovial Fluid Monocytes 5 % Synovial Fluid Histiocytes 5 % Synovial Fluid Crystals NONE Lactic Acid Level 0.8 mmol/L Test 03/07/18 06:50 03/07/18 22:43 White Blood Count 20.7 TH/MM3 Red Blood Count 3.73 MIL/MM3 Hemoglobin 10.6 GM/DL Hematocrit 32.3 % Mean Corpuscular Volume 86.6 FL Mean Corpuscular Hemoglobin 28.5 PG Mean Corpuscular Hemoglobin Concent 32.9 % Red Cell Distribution Width 13.0 % Platelet Count 263 TH/MM3 Mean Platelet Volume 8.9 FL Neutrophils (%) (Auto) 86.2 % Lymphocytes (%) (Auto) 5.3 % Monocytes (%) (Auto) 8.4 % Eosinophils (%) (Auto) 0.0 % Basophils (%) (Auto) 0.1 % Neutrophils # (Auto) 17.8 TH/MM3 Lymphocytes # (Auto) 1.1 TH/MM3 Monocytes # (Auto) 1.7 TH/MM3 Eosinophils # (Auto) 0.0 TH/MM3 Basophils # (Auto) 0.0 TH/MM3 CBC Comment DIFF FINAL Differential Comment Blood Urea Nitrogen 6 MG/DL Creatinine 0.51 MG/DL Random Glucose 131 MG/DL Total Protein 6.4 GM/DL Albumin 2.8 GM/DL Calcium Level 8.3 MG/DL Alkaline Phosphatase 70 U/L Aspartate Amino Transf (AST/SGOT) 7 U/L Alanine Aminotransferase (ALT/SGPT) 14 U/L Total Bilirubin 0.6 MG/DL Sodium Level 140 MEQ/L Potassium Level 3.3 MEQ/L Chloride Level 107 MEQ/L Carbon Dioxide Level 24.2 MEQ/L Anion Gap 9 MEQ/L Estimat Glomerular Filtration Rate 140 ML/MIN Vancomycin Level Trough 2.8 MCG/ML Imaging Last Impressions Lower Extremity CT 03/06/18 Signed Impressions: CONCLUSION: Trace joint effusion. Otherwise within normal limits. Knee X-Ray 03/06/18 Signed Impressions: CONCLUSION: Left knee series within normal limits. Objective Remarks GENERAL: Awake alert and oriented 3 talkative and cooperative SKIN: Warm and dry. Left knee is dressed HEAD: Atraumatic. Normocephalic. EYES: Pupils equal and round. No scleral icterus. No injection or drainage. Extraocular muscles intact ENT: No nasal bleeding or discharge. Mucous membranes pink and moist. Tongue is midline NECK: Trachea midline. No JVD. Supple CARDIOVASCULAR: Regular rate and rhythm. S1-S2 no S3 or S4 RESPIRATORY: No accessory muscle use. Clear to auscultation. Breath sounds equal bilaterally. GASTROINTESTINAL: Abdomen soft, non-tender, nondistended. Hepatic and splenic margins not palpable. MUSCULOSKELETAL: Extremities without clubbing, cyanosis, or edema. No obvious deformities. NEUROLOGICAL: Awake and alert. No obvious cranial nerve deficits. Motor grossly within normal limits. Five out of 5 muscle strength in the arms and legs. Normal speech. Left knee is dressed PSYCHIATRIC: Appropriate mood and affect; insight and judgment normal. Procedures I and D left knee Date of Surgery: Mar 06, 2018 Preoperative Diagnosis: Probable septic arthritis left knee Postoperative Diagnosis: Procedure: Left knee arthrotomy with irrigation and debridement Anesthesia: General Surgeon: Rodrigo Choudhury Loading Unit Operator Crimping(s): Saul Chan PA-C The surgical procedure was assisted by my physician medical assistant supervisor. My P.A. presence was necessary throughout this case for the manipulation and positioning of the surgical extremity. My P.A. was assisting me throughout the duration of this procedure. The skill set of a physician medical assistant supervisor was medically necessary to complete this procedure. During the surgical case the multi care technician was working at the back table and the physician medical assistant supervisor was directly assisting me. Operation and Findings: Patient was seen and evaluated preoperatively. Patient was found to have probable infection of the left knee joint. Knee effusion and erythema were noted. Left knee aspiration revealed elevated white blood cell count with no crystals. Patient had a very elevated C-reactive protein. Informed consent was obtained after detailed discussion of risk and benefits of surgery. Operative site was marked. Patient was brought to the operating room. IV sedation and GETA were administered by anesthesiologist. Operative leg was prepped with alcohol followed by Hibiclens and draped in usual sterile fashion. Timeout procedure was performed. Procedure began with a 3 cm incision over the lateral knee. Subcutaneous tissue dissected with Bovie. Iliotibial band was opened in line with fibers. The joint was now opened through arthrotomy. A moderate volume of purulent appearing fluid was found within the knee. Specimen was obtained for cultures and sensitivities. The knee joint was manipulated. The knee joint was palpated and loculations were manually debrided. A portion of the synovium was excised. After excisional debridement was complete, the wound was thoroughly irrigated with sterile saline. At this point the wound was clean. Capsule was closed with #1 PDS, Subcutaneous tissues closed with 3-0 PDS and skin was closed with 3-0 nylon. A DONNY drain was placed into the wound. Sterile dressings were applied. Patient was awakened and transferred to recovery in stable condition. Needle and sponge counts were correct Rodrigo Choudhury MD Mar 06, 2018 11:58 Medications and IVs Current Medications Sodium Chloride 1,000 ml @ 1,000 mls/hr Q1H ONCE IV Last administered on at 04:49; Start 03/06/18 at 04:30; Stop 03/06/18 at 05:29; Status DC Ketorolac Tromethamine (Toradol Inj) 15 mg ONCE ONCE IV PUSH Last administered on 03/06/18at 04:50; Start 03/06/18 at 04:30; Stop 03/06/18 at 04:31 ; Status DC Piperacillin Sod/ Tazobactam Sod 50 ml @ 100 mls/hr ONCE ONCE IV Last administered on 03/06/18at 06:43; Start 03/06/18 at 06:15; Stop 03/06/18 at 06:44 ; Status DC Vancomycin HCl 1000 mg/Sodium Chloride 250 ml @ 250 mls/hr ONCE ONCE IV Last administered on 03/06/18at 07:18; Start 03/06/18 at 06:15; Stop 03/06/18 at 07:14 ; Status DC Iohexol (Omnipaque 350 Inj) 96 ml STK-MED ONCE IVCONTRAST Last administered on 03/06/18at 06:08; Start 03/06/18 at 06:08; Stop 03/06/18 at 06:09; Status DC Pharmacy Profile Note 0 ml @ 0 mls/hr UNSCH OTHER ; Start 03/06/18 at 06:15 Cefepime HCl 1000 mg/Sodium Chloride 100 ml @ 200 mls/hr Q12H IV Last administered on 03/08/18at 07:34; Start 03/06/18 at 21:00 Sodium Chloride 1,000 ml @ 100 mls/hr Q10H IV Last administered on 03/08/18at 13:58; Start 03/06/18 at 06:10 Sodium Chloride (NS Flush) 2 ml UNSCH PRN IV FLUSH FLUSH AFTER USING IV ACCESS ; Start 03/06/18 at 06:15 Sodium Chloride (NS Flush) 2 ml BID IV FLUSH Last administered on 03/07/18at 21: 24; Start 03/06/18 at 09:00 Metoclopramide HCl (Reglan Inj) 5 mg Q6H PRN IV PUSH NAUSEA OR VOMITING; Start 03/06/18 at 06:15 Acetaminophen (Tylenol) 650 mg Q6H PRN PO FEVER/PAIN SCALE 1 TO 2 Last administered on 03/07/18at 04:39; Start 03/06/18 at 06:15 Morphine Sulfate (Morphine Inj) 2 mg Q3H PRN IV PUSH breakthrough pain Last administered on 03/08/18at 11:23; Start 03/06/18 at 06:15 Oxycodone HCl (Roxicodone) 5 mg Q4H PRN PO PAIN SCALE 3 TO 5 Last administered on 03/06/18at 07:24; Start 03/06/18 at 06:15; Stop 03/07/18 at 07:00; Status DC Senna/Docusate Sodium (Mary Jo-Colace) 1 tab BID PO Last administered on at 07:34; Start 03/06/18 at 09:00 Magnesium Hydroxide (Milk Of Magnesia Liq) 30 ml Q12H PRN PO Mild constipation ; Start 03/06/18 at 06:15 Sennosides (Senokot) 17.2 mg Q12H PRN PO Moderate constipation Last administered on 03/07/18at 08:50; Start 03/06/18 at 06:15 Bisacodyl (Dulcolax Supp) 10 mg DAILY PRN RECTAL SEVERE CONSITIPATION/ IF NPO ; Start 03/06/18 at 06:15 Lactulose (Lactulose Liq) 30 ml DAILY PRN PO SEVERE CONSITIPATION/ IF PO; Start 03/06/18 at 06:15 Potassium Chloride (KCl) 30 meq ONCE ONCE PO Last administered on 03/06/18at 08 :37; Start 03/06/18 at 08:15; Stop 03/06/18 at 08:17; Status DC Lactated Ringer's 1,000 ml @ 30 mls/hr Q24H PRN IV SEE LABEL COMMENTS Last administered on 03/06/18at 10:00; Start 03/06/18 at 09:30; Stop 03/09/18 at 09:29 Sodium Chloride 500 ml @ 30 mls/hr [id number] PRN IV SEE LABEL COMMENTS; Start 08/13 at 09:30; Stop 03/09/18 at 09:29 Metoprolol Tartrate (Lopressor) 25 mg [employer] PRN PO SEE LABEL COMMENTS; Start 03/06/18 at 09:30; Stop 03/09/18 at 09:29 Povidone Iodine (Betadine 5% Antisepsis Kit) 1 applic [employer] PRN EACH NARE SEE LABEL COMMENTS; Start 03/06/18 at 09:30; Stop 03/09/18 at 09:29 Chlorhexidine Gluconate (Chlorhexidine 2% Cloth) 3 pack [employer] PRN TOPICAL SEE LABEL COMMENTS; Start 03/06/18 at 09:30; Stop 03/09/18 at 09:29 Insulin Human Regular (NovoLIN R INJ) See Protocol Table ... [employer] PRN SQ SEE PROTOCOL TABLE; Start 03/06/18 at 09:30; Stop 03/09/18 at 09:29 Vancomycin HCl 750 mg/Sodium Chloride 257.5 ml @ 257.5 mls/ hr Q12H IV Last administered on 03/08/18at 11:23; Start 03/06/18 at 23:00 Miscellaneous Information ([facility] Ordered Lab Info) SPECIFIC LAB TO BE ... ONCE ONCE .XX Last administered on 03/07/18at 22:41; Start 03/07/18 at 22:45; Stop 03/07/18 at 22:46; Status DC Gentamicin Sulfate (Gentamicin Inj) 240 mg STK-MED ONCE .ROUTE Last administered on 03/06/18at 11:43; Start 03/06/18 at 11:17; Stop 03/06/18 at 11:18 ; Status DC Cefazolin Sodium (Ancef Inj) 2,000 mg STK-MED ONCE .ROUTE ; Start 03/06/18 at 11 :18; Stop 03/06/18 at 11:19; Status DC Acetaminophen 100 ml @ As Directed STK-MED ONCE IV ; Start 03/06/18 at 11:24; Stop 03/06/18 at 11:25; Status DC Hydromorphone HCl (Dilaudid Pf Inj) 4 mg STK-MED ONCE .ROUTE ; Start 03/06/18 at 11:25; Stop 03/06/18 at 11:26; Status DC Miscellaneous Information (Misc Post-op Orders (for Pharmacy)) STAT ONCE XX ; Start 03/06/18 at 12:00; Stop 03/06/18 at 12:21; Status DC Ondansetron HCl (Zofran Odt) 4 mg Q4H PRN PO NAUSEA OR VOMITING; Start at 12:30 Diphenhydramine HCl (Benadryl) 25 mg Q6H PRN PO ITCHING; Start 03/06/18 at 12: 00 Morphine Sulfate (*morphine INJ PERIprocedure ONLY) 4 mg STK-MED ONCE .ROUTE ; Start 03/06/18 at 12:17; Stop 03/06/18 at 12:18; Status DC Fentanyl Citrate (fentaNYL INJ) 200 mcg STK-MED ONCE .ROUTE ; Start 03/06/18 at 12:21; Stop 03/06/18 at 12:22; Status DC Morphine Sulfate (Morphine Inj) 8 mg STK-MED ONCE .ROUTE ; Start 03/06/18 at 12: 21; Stop 03/06/18 at 12:22; Status DC Morphine Sulfate (*morphine INJ PERIprocedure ONLY) 4 mg STK-MED ONCE .ROUTE Last administered on 03/06/18at 12:27; Start 03/06/18 at 12:27; Stop 03/06/18 at 12:28; Status DC Morphine Sulfate (Morphine Inj) 2 mg ONCE ONCE IV PUSH Last administered on 08/13at 22:44; Start 03/06/18 at 22:15; Stop 03/06/18 at 22:33; Status DC Acetaminophen/ Hydrocodone Bitart ([place] 7.5-325 Mg) 1 tab Q4H PRN PO pain 6- 10 Last administered on 03/08/18at 09:51; Start 03/07/18 at 07:00; Status Future hold Acetaminophen/ Hydrocodone Bitart ([place] 5-325 Mg) 1 tab Q4H PRN PO pain3-5; Start 03/07/18 at 07:00; Status Future hold Potassium Chloride (KCl) 30 meq ONCE ONCE PO Last administered on 03/07/18at 11 :12; Start 03/07/18 at 10:30; Stop 03/07/18 at 10:32; Status DC Sodium Chloride 500 ml @ As Directed STK-MED ONCE IV ; Start 03/06/18 at 12:00 ; Stop 03/07/18 at 15:18; Status DC Lidocaine HCl (Xylocaine-Mpf 1% Inj) 5 ml STK-MED ONCE OTHER ; Start 03/06/18 at 12:00; Stop 03/07/18 at 15:18; Status DC Rocuronium [place] (Zemuron Inj) 50 mg STK-MED ONCE IV PUSH ; Start 03/06/18 at 12:00; Stop 03/07/18 at 15:18; Status DC Succinylcholine Chloride (Quelicin Inj) 200 mg STK-MED ONCE IV ; Start 03/06/18 at 12:00; Stop 03/07/18 at 15:18; Status DC Dexamethasone Sodium Phosphate (Decadron Inj) 8 mg STK-MED ONCE IV ; Start 03/06 at 12:00; Stop 03/07/18 at 15:18; Status DC Propofol (Diprivan 200 Mg/20 ml Inj) 200 mg STK-MED ONCE IV ; Start 03/06/18 at 12:00; Stop 03/07/18 at 15:18; Status DC Melatonin (Melatonin) 5 mg ONCE ONCE PO Last administered on 03/07/18at 23:36; Start 03/07/18 at 23:00; Stop 03/07/18 at 23:02; Status DC Ibuprofen (Motrin) 600 mg Q6H PRN PO PAIN 3 TO 10 Last administered on at 13:57; Start 03/08/18 at 12:45; Stop 03/08/18 at 14:35; Status DC Ibuprofen (Motrin) 600 mg Q6H PO ; Start 03/08/18 at 18:45; Status UNV A/P Problem List: (1) Sepsis ICD Code: A41.9 - Sepsis, unspecified organism Status: Acute (2) Left knee pain ICD Code: M25.562 - Pain in left knee Status: Acute Assessment and Plan This is a 33-year-old female who presents to the emergency room complaining of left knee pain and swelling with decreased range of motion. She also has fever. In the emergency department, joint aspiration was performed with cloudy yellow aspirate. Likely Septic joint, left knee. Synovial fluid WBC over 31,000. Continue IV vancomycin and cefepime and pain management with hydrocodone and morphine sulfate. Patient counseled regarding narcotics. Wd care. Follow-up cultures. Gram-positive cocci bacteremia. Continue IV vancomycin and consult infectious disease Hypokalemia. Replace with 30 mEq p.o. potassium 1. Abnormal urinalysis. No UTI symptoms. Follow-up urine culture Polysubstance abuse. Counseled DVT prophylaxis with SCD and early ambulation ID has been consulted A.m. labs Decreased pain control by adding ibuprofen scheduled Discussed with patient and nurses assistant Planning Await infectious disease clearance Problem Qualifiers (1) Sepsis: Qualified Codes: A41.9 - Sepsis, unspecified organism (2) Left knee pain: Qualified Codes: M25.562 - Pain in left knee Ladarius Pérez DO Mar 08, 2018 14:39
[2018-03-08] MEDS ORDERED: POTASSIUM CHLORIDE 20 MEQ CONTROLLED RELEASE TAB PO ONE ×2 (14:45→17:00)
[2018-03-08] MEDS ORDERED: VANCOMYCIN INJ 1,250 MG in SODIUM CHLOR 0.9% 250 ML INJ 250 ML IV SCH (18:00)
[2018-03-08] MEDS: IBUPROFEN 600 MG TAB PO SCH (18:39)
--- NOTE | 2018-03-08 20:12 | PD.ID.CON ---
History of Present Illness Service ID Consult Requested By Dr Orellana Reason for Consult septi knee and bactremia Primary Care Physician No Primary Care Physician Diagnoses: History of Present Illness 32 yo female no past med hx presented with 5 days of worsning L knee pain and low grade fevers No abx use prior to presentation On presentation temp of 101 and WBC of 26 K He arthrocenthesis whoed 30 K WBC with 90% neutrophil predominance She was taken to OR for I+D by Dr Choudhury Gstain and prelim clx are negative Her blood clx are growing MSSA 4/4 pt c/o excrutiating L knee pain She adamnatlydenies IVDU Review of Systems Except as stated in HPI: all other systems reviewed are Neg Past Family Social History Allergies: Coded Allergies: No Known Allergies (Unverified , 03/06/18) Past Medical History none Past Surgical History Denies Active Ordered Medications Medications where reviewed in EMR Antibiotics Include: cefepime vancomycin Family History No CAd or CVA Social History Occasional alcohol and tobacco use admits to shad MUÑOZ, josé miguelantly denies ever using IV drugs Physical Exam Vital Signs Vital Signs Date Time Temp Pulse Resp B/P (MAP) Pulse Ox O2 Delivery O2 Flow Rate FiO2 03/08/18 15:36 99.9 83 18 115/74 (88) 99 03/08/18 14:23 71 03/08/18 12:00 99.3 71 18 134/75 (94) 99 03/08/18 09:09 72 03/08/18 08:00 99.9 76 16 132/82 (99) 98 03/08/18 04:18 75 03/08/18 04:00 98.9 76 18 153/84 (107) 100 03/08/18 00:00 99.2 116 18 158/76 (103) 99 03/07/18 20:00 98.3 93 18 132/71 (91) 99 Physical Exam CONSTITUTIONAL/GENERAL: This is an adequately nourished patient, in apparent distress due to knee pain TUBES/LINES/DRAINS: SKIN: No jaundice, rashes, or lesions. Skin temperature appropriate. Not diaphoretic. HEAD: Atraumatic. Normocephalic. EYES: Pupils equal and round and reactive. Extraocular motions intact. No scleral icterus. No injection or drainage. Fundi not examined. ENT: Hearing grossly normal. Nose without bleeding or purulent drainage. Throat without visible erythema, exudates, masses, or lesions. NECK: Trachea midline. Supple, nontender. CARDIOVASCULAR: Regular rate and rhythm without murmurs, gallops, or rubs. No JVD. Peripheral pulses symmetric. RESPIRATORY/CHEST: Symmetric, unlabored respirations. Clear to auscultation. Breath sounds equal bilaterally. No wheezes, rales, or rhonchi. GASTROINTESTINAL: Abdomen soft, non-tender, nondistended. No hepato-splenomegaly , or palpable masses. No guarding. Bowel sounds present. GENITOURINARY: Without palpable bladder distension. MUSCULOSKELETAL: Extremities without clubbing, cyanosis, or edema. LLE : surical dressing in place DONNY in place with serosang drainage LYMPHATICS: No palpable cervical or supraclavicular adenopathy. NEUROLOGICAL: Awake and alert. Motor and sensory grossly within normal limits. Follows commands. Cognitively sharp. Moves all extremities. PSYCHIATRIC: distressed, crying from pain Laboratory Laboratory Tests Test 03/07/18 22:43 Vancomycin Level Trough 2.8 Date/Time Source Procedure Growth Status 03/06/18 06:40 Blood Peripheral Aerobic Blood Culture - Final Staphylococcus Aureus Complete 03/06/18 06:40 Anaerobic Blood Culture - Final Staphylococcus Aureus Complete 03/06/18 06:34 Fluid Synovial Fluid Gram Stain - Final Resulted 03/06/18 06:34 Fluid Synovial Fluid Body Fluid Culture - Preliminary NO GROWTH IN 48 HOURS. Resulted 03/06/18 05:02 Urine Random Urine Urine Culture - Final 50-100,000 CFU/ML MIXED GRAM POSITIVE... Complete 03/06/18 11:35 Abscess Knee Fungal Smear - Final NO FUNGAL ELEMENTS SEEN. Resulted 03/06/18 11:35 Abscess Knee Fungal Culture Pending Resulted Result Diagram: 03/07/18 0650 03/07/18 0650 Imaging Last Impressions Lower Extremity CT 03/06/18 0000 Signed Impressions: CONCLUSION: Trace joint effusion. Otherwise within normal limits. Knee X-Ray 03/06/18 0000 Signed Impressions: CONCLUSION: Left knee series within normal limits. Assessment and Plan Assessment and Plan L septic knee MSSA sepsis - high grade change abx to oxacillin dc cefepime, vancomycin repeat BC 2 D echo anticipate 4-6 IV abx PICC line after documented blood sterility Mckenzie Dillon MD Mar 08, 2018 20:12
[2018-03-08] MEDS ORDERED: MELATONIN 5 MG TAB PO PRN (20:30)
[2018-03-08] MEDS: OXACILLIN INJ 2 GM in SODIUM CHLORIDE 0.9% INJ 100 ML IV SCH (22:11)
[2018-03-09] VITALS (9 sets, daily range): BP systolic 105–129; BP diastolic 60–75; PULSE 61–77; RESP 16–19; TEMP 98.2–99.4; O2SAT 93–100
[2018-03-09] MEDS: OXACILLIN INJ 2 GM in SODIUM CHLORIDE 0.9% INJ 100 ML IV SCH ×6 (00:51→21:44)
[2018-03-09] MEDS: ACETAMINOPHEN/HYDROcodone 325 MG/7.5 MG TAB PO PRN ×6 (00:51→22:28)
[2018-03-09] MEDS: IBUPROFEN 600 MG TAB PO SCH ×4 (00:51→18:15)
[2018-03-09] MEDS: SODIUM CHLOR 0.9% 1000 ML INJ 1,000 ML IV SCH ×2 (03:40→13:04)
[2018-03-09 06:27] LABS: AUTOMATED NEUTROPHIL # 6.7 TH/MM3 (1.8-7.7); BASOPHIL % 0.4 % (0.0-2.0); EOSINOPHIL % 0.5 % (0.0-4.0); HEMOGLOBIN 10.8 GM/DL (11.6-15.3); LYMPH % 14.8 % (9.0-44.0); LYMPHOCYTE # 1.4 TH/MM3 (1.0-4.8); MEAN CELL VOLUME 87.3 FL (80.0-100.0); MEAN CORPUSCULAR HEMOGLOBIN 29.4 PG (27.0-34.0); MEAN CORPUSCULAR HGB CONC 33.7 % (32.0-36.0); MEAN PLATELET VOLUME 8.9 FL (7.0-11.0); MONO % 10.5 % (0.0-8.0); NEUT % 73.8 % (16.0-70.0); PLATELET COUNT 265 TH/MM3 (150-450); RED BLOOD COUNT 3.67 MIL/MM3 (4.00-5.30); RED CELL DISTRIBUTION WIDTH 13.3 % (11.6-17.2); WHITE BLOOD COUNT 9.1 TH/MM3 (4.0-11.0)
[2018-03-09 06:57] LABS: ALBUMIN 2.4 GM/DL (3.4-5.0); ALKALINE PHOSPHATASE 59 U/L (45-117); ALT (GPT) 58 U/L (10-53); AST (GOT) 53 U/L (15-37); BICARBONATE 24.4 MEQ/L (21.0-32.0); BLOOD UREA NITROGEN 7 MG/DL (7-18); CALCIUM 8.4 MG/DL (8.5-10.1); CHLORIDE 109 MEQ/L (98-107); CREATININE 0.44 MG/DL (0.50-1.00); FREE T4 1.43 NG/DL (0.76-1.46); GLOMERULAR FILTRATION RATE 166 ML/MIN (>89); GLUCOSE,RANDOM 79 MG/DL (74-106); MAGNESIUM 2.1 MG/DL (1.5-2.5); PHOSPHORUS 3.6 MG/DL (2.5-4.9); SODIUM (NA) 143 MEQ/L (136-145); TOTAL BILIRUBIN ADULT 0.3 MG/DL (0.2-1.0); TOTAL PROTEIN 6.3 GM/DL (6.4-8.2)
--- NOTE | 2018-03-09 08:00 | PD.ORT.PN ---
Subjective Subjective Remarks POD 3 s/p I&D left knee reports pain improving. using walker. states able to bend knee more Objective Vitals Vital Signs Date Time Temp Pulse Resp B/P (MAP) Pulse Ox O2 Delivery O2 Flow Rate FiO2 03/09/18 06:21 72 03/09/18 03:35 98.4 61 19 105/63 (77) 100 03/09/18 00:00 99.3 65 16 127/60 (82) 93 03/08/18 20:00 98.8 82 17 135/65 (88) 100 03/08/18 15:36 99.9 83 18 115/74 (88) 99 03/08/18 14:23 71 03/08/18 12:00 99.3 71 18 134/75 (94) 99 03/08/18 09:09 72 03/08/18 08:00 99.9 76 16 132/82 (99) 98 I/O 03/08/18 03/08/18 03/08/18 03/09/18 03/09/18 03/09/18 07:00 15:00 23:00 07:00 15:00 23:00 Intake Total 1450 ml 350 ml 1350 ml 600 ml Output Total 40 ml 30 ml 10 ml Balance 1410 ml 350 ml 1320 ml 590 ml Intake Oral 500 ml IV Total 1450 ml 350 ml 1350 ml 100 ml Output Drainage Total 40 ml 30 ml 10 ml # Voids 5 3 Result Diagram: 03/09/18 0600 03/09/18 0600 Objective Remarks LLE: dressings clean and dry. itnact. NVI. Assessment & Plan Assessment and Plan 1) Left Knee I&D - POD 3 -WBAT -ROM -maintain drain -cultures negative so far. will give one more day for finalization -if negative, plan for discharge home tomorrow -pain control Saul Chan/Grading Clerk ANTOINE Mar 09, 2018 08:00
[2018-03-09] MEDS: DOCUSATE SODIUM 50 MG/SENNA 8.6 MG TAB PO SCH ×3 (09:08→21:44)
[2018-03-09] MEDS: SODIUM CHLORIDE 0.9% FLUSH 10 ML FLUSH IV FLUSH SCH ×2 (09:09→21:44)
--- NOTE | 2018-03-09 11:05 | HHI.PR ---
Subjective Remarks This is a 33-year-old female who presents to the emergency room complaining of left knee pain. 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 Over the past several days, her left knee pain has worsened temporarily relieved with icing and elevation. It is severe that she is unable to bear weight. She denies IV drug use but admits to marijuana and cocaine. No history of STD or LONG TERM complaints. Does not remember recent significant trauma or sustaining an open wound. Reports of low-grade fever. In the emergency department, joint aspiration was performed with cloudy yellow aspirate. She was then given IV vancomycin and Zosyn. Currently seen in the preop area awaiting orthopedic intervention. All other systems reviewed negative 6-12 F/u left knee pain. C/o knee pain requiring narcs. Also complaining of not able to sleep from frequent nursing intervention 6- COMPLAINS OF PAIN IN LEFT KNEE DW ID AND RN AND CM AND PT WANTS IBUPROFEN PLUS NORCO AND MORPHINE FOR PAIN WILL ADD SCHEDULED IBUPROFEN DW RN AND PT 6-14 LESS PAIN LEFT KNEE DW RN AND PATIENT CONTINUE ANTIBIOTICS PER ID AM LABS ON OXACILLIN Objective Vitals Vital Signs Date Time Temp Pulse Resp B/P (MAP) Pulse Ox O2 Delivery O2 Flow Rate FiO2 03/09/18 08:40 65 03/09/18 08:00 99.0 71 18 115/70 (85) 98 03/09/18 06:21 72 03/09/18 03:35 98.4 61 19 105/63 (77) 100 03/09/18 00:00 99.3 65 16 127/60 (82) 93 03/08/18 20:00 98.8 82 17 135/65 (88) 100 03/08/18 15:36 99.9 83 18 115/74 (88) 99 03/08/18 14:23 71 03/08/18 12:00 99.3 71 18 134/75 (94) 99 I/O 03/08/18 03/08/18 03/08/18 03/09/18 03/09/18 03/09/18 07:00 15:00 23:00 07:00 15:00 23:00 Intake Total 1450 ml 350 ml 1350 ml 600 ml Output Total 40 ml 30 ml 10 ml Balance 1410 ml 350 ml 1320 ml 590 ml Intake Oral 500 ml IV Total 1450 ml 350 ml 1350 ml 100 ml Output Drainage Total 40 ml 30 ml 10 ml # Voids 5 3 Result Diagram: 03/09/18 0600 03/09/18 0600 Other Results Laboratory Tests Test 03/07/18 06:50 03/07/18 22:43 03/09/18 06:00 White Blood Count 20.7 TH/MM3 9.1 TH/MM3 Red Blood Count 3.73 MIL/MM3 3.67 MIL/MM3 Hemoglobin 10.6 GM/DL 10.8 GM/DL Hematocrit 32.3 % 32.0 % Mean Corpuscular Volume 86.6 FL 87.3 FL Mean Corpuscular Hemoglobin 28.5 PG 29.4 PG Mean Corpuscular Hemoglobin Concent 32.9 % 33.7 % Red Cell Distribution Width 13.0 % 13.3 % Platelet Count 263 TH/MM3 265 TH/MM3 Mean Platelet Volume 8.9 FL 8.9 FL Neutrophils (%) (Auto) 86.2 % 73.8 % Lymphocytes (%) (Auto) 5.3 % 14.8 % Monocytes (%) (Auto) 8.4 % 10.5 % Eosinophils (%) (Auto) 0.0 % 0.5 % Basophils (%) (Auto) 0.1 % 0.4 % Neutrophils # (Auto) 17.8 TH/MM3 6.7 TH/MM3 Lymphocytes # (Auto) 1.1 TH/MM3 1.4 TH/MM3 Monocytes # (Auto) 1.7 TH/MM3 1.0 TH/MM3 Eosinophils # (Auto) 0.0 TH/MM3 0.0 TH/MM3 Basophils # (Auto) 0.0 TH/MM3 0.0 TH/MM3 CBC Comment DIFF FINAL DIFF FINAL Differential Comment Blood Urea Nitrogen 6 MG/DL 7 MG/DL Creatinine 0.51 MG/DL 0.44 MG/DL Random Glucose 131 MG/DL 79 MG/DL Total Protein 6.4 GM/DL 6.3 GM/DL Albumin 2.8 GM/DL 2.4 GM/DL Calcium Level 8.3 MG/DL 8.4 MG/DL Alkaline Phosphatase 70 U/L 59 U/L Aspartate Amino Transf (AST/SGOT) 7 U/L 53 U/L Alanine Aminotransferase (ALT/SGPT) 14 U/L 58 U/L Total Bilirubin 0.6 MG/DL 0.3 MG/DL Sodium Level 140 MEQ/L 143 MEQ/L Potassium Level 3.3 MEQ/L 3.3 MEQ/L Chloride Level 107 MEQ/L 109 MEQ/L Carbon Dioxide Level 24.2 MEQ/L 24.4 MEQ/L Anion Gap 9 MEQ/L 10 MEQ/L Estimat Glomerular Filtration Rate 140 ML/MIN 166 ML/MIN Vancomycin Level Trough 2.8 MCG/ML Phosphorus Level 3.6 MG/DL Magnesium Level 2.1 MG/DL Free Thyroxine 1.43 NG/DL Thyroid Stimulating Hormone 3rd Gen 0.787 uIU/ML Imaging Last Impressions Lower Extremity CT 03/06/18 0000 Signed Impressions: CONCLUSION: Trace joint effusion. Otherwise within normal limits. Knee X-Ray 03/06/18 0000 Signed Impressions: CONCLUSION: Left knee series within normal limits. Objective Remarks GENERAL: Awake alert and oriented 3 talkative and cooperative SKIN: Warm and dry. Left knee is dressed HEAD: Atraumatic. Normocephalic. EYES: Pupils equal and round. No scleral icterus. No injection or drainage. Extraocular muscles intact ENT: No nasal bleeding or discharge. Mucous membranes pink and moist. Tongue is midline NECK: Trachea midline. No JVD. Supple CARDIOVASCULAR: Regular rate and rhythm. S1-S2 no S3 or S4 RESPIRATORY: No accessory muscle use. Clear to auscultation. Breath sounds equal bilaterally. GASTROINTESTINAL: Abdomen soft, non-tender, nondistended. Hepatic and splenic margins not palpable. MUSCULOSKELETAL: Extremities without clubbing, cyanosis, or edema. No obvious deformities. NEUROLOGICAL: Awake and alert. No obvious cranial nerve deficits. Motor grossly within normal limits. Five out of 5 muscle strength in the arms and legs. Normal speech. Left knee is dressed PSYCHIATRIC: Appropriate mood and affect; insight and judgment normal. Procedures I and D left knee Date of Surgery: Mar 06, 2018 Preoperative Diagnosis: Probable septic arthritis left knee Postoperative Diagnosis: Procedure: Left knee arthrotomy with irrigation and debridement Anesthesia: General Surgeon: Rodrigo Choudhury Federal Aid Coordinator(s): Saul Chan PA-C The surgical procedure was assisted by my physician assistant executive housekeeper. My P.A. presence was necessary throughout this case for the manipulation and positioning of the surgical extremity. My P.A. was assisting me throughout the duration of this procedure. The skill set of a physician assistant executive housekeeper was medically necessary to complete this procedure. During the surgical case the rn surgical was working at the back table and the physician assistant executive housekeeper was directly assisting me. Operation and Findings: Patient was seen and evaluated preoperatively. Patient was found to have probable infection of the left knee joint. Knee effusion and erythema were noted. Left knee aspiration revealed elevated white blood cell count with no crystals. Patient had a very elevated C-reactive protein. Informed consent was obtained after detailed discussion of risk and benefits of surgery. Operative site was marked. Patient was brought to the operating room. IV sedation and GETA were administered by anesthesiologist. Operative leg was prepped with alcohol followed by Hibiclens and draped in usual sterile fashion. Timeout procedure was performed. Procedure began with a 3 cm incision over the lateral knee. Subcutaneous tissue dissected with Bovie. Iliotibial band was opened in line with fibers. The joint was now opened through arthrotomy. A moderate volume of purulent appearing fluid was found within the knee. Specimen was obtained for cultures and sensitivities. The knee joint was manipulated. The knee joint was palpated and loculations were manually debrided. A portion of the synovium was excised. After excisional debridement was complete, the wound was thoroughly irrigated with sterile saline. At this point the wound was clean. Capsule was closed with #1 PDS, Subcutaneous tissues closed with 3-0 PDS and skin was closed with 3-0 nylon. A DONNY drain was placed into the wound. Sterile dressings were applied. Patient was awakened and transferred to recovery in stable condition. Needle and sponge counts were correct Rodrigo Choudhury MD Mar 06, 2018 11:58 Medications and IVs Current Medications Sodium Chloride 1,000 ml @ 1,000 mls/hr Q1H ONCE IV Last administered on at 04:49; Start 03/06/18 at 04:30; Stop 03/06/18 at 05:29; Status DC Ketorolac Tromethamine (Toradol Inj) 15 mg ONCE ONCE IV PUSH Last administered on 03/06/18at 04:50; Start 03/06/18 at 04:30; Stop 03/06/18 at 04:31 ; Status DC Piperacillin Sod/ Tazobactam Sod 50 ml @ 100 mls/hr ONCE ONCE IV Last administered on 03/06/18at 06:43; Start 03/06/18 at 06:15; Stop 03/06/18 at 06:44 ; Status DC Vancomycin HCl 1000 mg/Sodium Chloride 250 ml @ 250 mls/hr ONCE ONCE IV Last administered on 03/06/18at 07:18; Start 03/06/18 at 06:15; Stop 03/06/18 at 07:14 ; Status DC Iohexol (Omnipaque 350 Inj) 96 ml STK-MED ONCE IVCONTRAST Last administered on 03/06/18at 06:08; Start 03/06/18 at 06:08; Stop 03/06/18 at 06:09; Status DC Pharmacy Profile Note 0 ml @ 0 mls/hr UNSCH OTHER ; Start 03/06/18 at 06:15; Stop 03/08/18 at 19:51; Status DC Cefepime HCl 1000 mg/Sodium Chloride 100 ml @ 200 mls/hr Q12H IV Last administered on 03/08/18at 07:34; Start 03/06/18 at 21:00; Stop 03/08/18 at 19:51 ; Status DC Sodium Chloride 1,000 ml @ 100 mls/hr Q10H IV Last administered on 03/09/18at 03:40; Start 03/06/18 at 06:10 Sodium Chloride (NS Flush) 2 ml UNSCH PRN IV FLUSH FLUSH AFTER USING IV ACCESS ; Start 03/06/18 at 06:15 Sodium Chloride (NS Flush) 2 ml BID IV FLUSH Last administered on 03/09/18at 09: 09; Start 03/06/18 at 09:00 Metoclopramide HCl (Reglan Inj) 5 mg Q6H PRN IV PUSH NAUSEA OR VOMITING; Start 03/06/18 at 06:15 Acetaminophen (Tylenol) 650 mg Q6H PRN PO FEVER/PAIN SCALE 1 TO 2 Last administered on 03/07/18at 04:39; Start 03/06/18 at 06:15 Morphine Sulfate (Morphine Inj) 2 mg Q3H PRN IV PUSH breakthrough pain Last administered on 03/08/18at 11:23; Start 03/06/18 at 06:15 Oxycodone HCl (Roxicodone) 5 mg Q4H PRN PO PAIN SCALE 3 TO 5 Last administered on 03/06/18at 07:24; Start 03/06/18 at 06:15; Stop 03/07/18 at 07:00; Status DC Senna/Docusate Sodium (Mary Jo-Colace) 1 tab BID PO Last administered on at 09:08; Start 03/06/18 at 09:00 Magnesium Hydroxide (Milk Of Magnesia Liq) 30 ml Q12H PRN PO Mild constipation ; Start 03/06/18 at 06:15 Sennosides (Senokot) 17.2 mg Q12H PRN PO Moderate constipation Last administered on 03/07/18at 08:50; Start 03/06/18 at 06:15 Bisacodyl (Dulcolax Supp) 10 mg DAILY PRN RECTAL SEVERE CONSITIPATION/ IF NPO ; Start 03/06/18 at 06:15 Lactulose (Lactulose Liq) 30 ml DAILY PRN PO SEVERE CONSITIPATION/ IF PO; Start 03/06/18 at 06:15 Potassium Chloride (KCl) 30 meq ONCE ONCE PO Last administered on 03/06/18at 08 :37; Start 03/06/18 at 08:15; Stop 03/06/18 at 08:17; Status DC Lactated Ringer's 1,000 ml @ 30 mls/hr Q24H PRN IV SEE LABEL COMMENTS Last administered on 03/06/18at 10:00; Start 03/06/18 at 09:30; Stop 03/09/18 at 09:29 ; Status DC Sodium Chloride 500 ml @ 30 mls/hr [id number] PRN IV SEE LABEL COMMENTS; Start 08/13 at 09:30; Stop 03/09/18 at 09:29; Status DC Metoprolol Tartrate (Lopressor) 25 mg REGISTRATION SCHEDULING SPECIALIST PRN PO SEE LABEL COMMENTS; Start 03/06/18 at 09:30; Stop 03/09/18 at 09:29; Status DC Povidone Iodine (Betadine 5% Antisepsis Kit) 1 applic REGISTRATION SCHEDULING SPECIALIST PRN EACH NARE SEE LABEL COMMENTS; Start 03/06/18 at 09:30; Stop 03/09/18 at 09:29; Status DC Chlorhexidine Gluconate (Chlorhexidine 2% Cloth) 3 pack REGISTRATION SCHEDULING SPECIALIST PRN TOPICAL SEE LABEL COMMENTS; Start 03/06/18 at 09:30; Stop 03/09/18 at 09:29; Status DC Insulin Human Regular (NovoLIN R INJ) See Protocol Table ... REGISTRATION SCHEDULING SPECIALIST PRN SQ SEE PROTOCOL TABLE; Start 03/06/18 at 09:30; Stop 03/09/18 at 09:29; Status DC Vancomycin HCl 750 mg/Sodium Chloride 257.5 ml @ 257.5 mls/ hr Q12H IV Last administered on 03/08/18at 11:23; Start 03/06/18 at 23:00; Stop 03/08/18 at 18:21 ; Status DC Miscellaneous Information ([facility] [place] [place] [facility] Ordered Lab Info) SPECIFIC LAB TO BE [place]... ONCE ONCE .XX Last administered on 03/07/18at 22:41; Start 03/07/18 at 22:45; Stop 03/07/18 at 22:46; Status DC Gentamicin Sulfate (Gentamicin Inj) 240 mg STK-MED ONCE .ROUTE Last administered on 03/06/18at 11:43; Start 03/06/18 at 11:17; Stop 03/06/18 at 11:18 ; Status DC Cefazolin Sodium (Ancef Inj) 2,000 mg STK-MED ONCE .ROUTE ; Start 03/06/18 at 11 :18; Stop 03/06/18 at 11:19; Status DC Acetaminophen 100 ml @ As Directed STK-MED ONCE IV ; Start 03/06/18 at 11:24; Stop 03/06/18 at 11:25; Status DC Hydromorphone HCl (Dilaudid Pf Inj) 4 mg STK-MED ONCE .ROUTE ; Start 03/06/18 at 11:25; Stop 03/06/18 at 11:26; Status DC Miscellaneous Information ([facility] [place] [place] Post-op Orders (for Pharmacy)) STAT ONCE XX ; Start 03/06/18 at 12:00; Stop 03/06/18 at 12:21; Status DC Ondansetron HCl (Zofran Odt) 4 mg Q4H PRN PO NAUSEA OR VOMITING; Start at 12:30 Diphenhydramine HCl (Benadryl) 25 mg Q6H PRN PO ITCHING; Start 03/06/18 at 12: 00 Morphine Sulfate (*morphine INJ PERIprocedure ONLY) 4 mg STK-MED ONCE .ROUTE ; Start 03/06/18 at 12:17; Stop 03/06/18 at 12:18; Status DC Fentanyl Citrate (fentaNYL INJ) 200 mcg STK-MED ONCE .ROUTE ; Start 03/06/18 at 12:21; Stop 03/06/18 at 12:22; Status DC Morphine Sulfate (Morphine Inj) 8 mg STK-MED ONCE .ROUTE ; Start 03/06/18 at 12: 21; Stop 03/06/18 at 12:22; Status DC Morphine Sulfate (*morphine INJ PERIprocedure ONLY) 4 mg STK-MED ONCE .ROUTE Last administered on 03/06/18at 12:27; Start 03/06/18 at 12:27; Stop 03/06/18 at 12:28; Status DC Morphine Sulfate (Morphine Inj) 2 mg ONCE ONCE IV PUSH Last administered on 08/13at 22:44; Start 03/06/18 at 22:15; Stop 03/06/18 at 22:33; Status DC Acetaminophen/ Hydrocodone Bitart ([place] 7.5-325 Mg) 1 tab Q4H PRN PO pain 6- 10 Last administered on 03/09/18at 10:00; Start 03/07/18 at 07:00; Status Future hold Acetaminophen/ Hydrocodone Bitart ([place] 5-325 Mg) 1 tab Q4H PRN PO pain3-5; Start 03/07/18 at 07:00; Status Future hold Potassium Chloride (KCl) 30 meq ONCE ONCE PO Last administered on 03/07/18at 11 :12; Start 03/07/18 at 10:30; Stop 03/07/18 at 10:32; Status DC Sodium Chloride 500 ml @ As Directed STK-MED ONCE IV ; Start 03/06/18 at 12:00 ; Stop 03/07/18 at 15:18; Status DC Lidocaine HCl (Xylocaine-Mpf 1% Inj) 5 ml STK-MED ONCE OTHER ; Start 03/06/18 at 12:00; Stop 03/07/18 at 15:18; Status DC Rocuronium [place]lin (Zemuron Inj) 50 mg STK-MED ONCE IV PUSH ; Start 03/06/18 at 12:00; Stop 03/07/18 at 15:18; Status DC Succinylcholine Chloride (Quelicin Inj) 200 mg STK-MED ONCE IV ; Start 03/06/18 at 12:00; Stop 03/07/18 at 15:18; Status DC Dexamethasone Sodium Phosphate (Decadron Inj) 8 mg STK-MED ONCE IV ; Start 03/06 at 12:00; Stop 03/07/18 at 15:18; Status DC Propofol (Diprivan 200 Mg/20 ml Inj) 200 mg STK-MED ONCE IV ; Start 03/06/18 at 12:00; Stop 03/07/18 at 15:18; Status DC Melatonin (Melatonin) 5 mg ONCE ONCE PO Last administered on 03/07/18at 23:36; Start 03/07/18 at 23:00; Stop 03/07/18 at 23:02; Status DC Ibuprofen (Motrin) 600 mg Q6H PRN PO PAIN 3 TO 10 Last administered on at 13:57; Start 03/08/18 at 12:45; Stop 03/08/18 at 14:35; Status DC Ibuprofen (Motrin) 600 mg Q6H PO Last administered on 03/09/18at 05:54; Start at 19:00 Potassium Chloride (KCl) 40 meq ONCE ONCE PO Last administered on 03/08/18at 15 :25; Start 03/08/18 at 14:45; Stop 03/08/18 at 14:51; Status DC Potassium Chloride (KCl) 40 meq ONCE ONCE PO Last administered on 03/08/18at 16 :50; Start 03/08/18 at 17:00; Stop 03/08/18 at 17:01; Status DC Vancomycin HCl 1250 mg/Sodium Chloride 262.5 ml @ 250 mls/hr Q12H IV Last administered on 03/08/18at 18:38; Start 03/08/18 at 18:00; Stop 03/08/18 at 19:51 ; Status DC Miscellaneous Information ([facility] [place] [place] [facility] Ordered Lab Info) SPECIFIC LAB TO BE DOR[place]... ONCE ONCE .XX ; Start 03/10/18 at 05:45; Stop 03/10/18 at 05:46; Status Cancel Oxacillin Sodium 2 gm/Sodium Chloride 100 ml @ 200 mls/hr Q4H IV Last administered on 03/09/18at 09:08; Start 03/08/18 at 20:00 Melatonin (Melatonin) 5 mg HS PRN PO INSOMNIA Last administered on 03/08/18at 22 :10; Start 03/08/18 at 20:30 A/P Problem List: (1) Sepsis ICD Code: A41.9 - Sepsis, unspecified organism Status: Acute (2) Left knee pain ICD Code: M25.562 - Pain in left knee Status: Acute Assessment and Plan This is a 33-year-old female who presents to the emergency room complaining of left knee pain and swelling with decreased range of motion. She also has fever. In the emergency department, joint aspiration was performed with cloudy yellow aspirate. Likely Septic joint, left knee. Synovial fluid WBC over 31,000. Continue IV OXACILLIN and pain management with hydrocodone and morphine sulfate. Patient counseled regarding narcotics. Wd care. Follow-up cultures. -- AWAIT ID CLEARANCE Gram-positive cocci bacteremia. Continue OXACILLIN and consult infectious disease Hypokalemia. Replace with 30 mEq p.o. potassium 1. --WILL REPLACE AGAIN Abnormal urinalysis. No UTI symptoms. Follow-up urine culture Polysubstance abuse. Counseled DVT prophylaxis with SCD and early ambulation ID has been consulted A.m. labs Decreased pain control by adding ibuprofen scheduled Discussed with patient and web applications architect Planning Await infectious disease clearance Problem Qualifiers (1) Sepsis: Qualified Codes: A41.9 - Sepsis, unspecified organism (2) Left knee pain: Qualified Codes: M25.562 - Pain in left knee Ladarius Pérez DO Mar 09, 2018 11:05
[2018-03-09] MEDS ORDERED: POTASSIUM CHLORIDE 20 MEQ CONTROLLED RELEASE TAB PO ONE ×2 (11:15→13:15)
[2018-03-09] MEDS: MORPHINE SULFATE 4 MG/ML INJ IV PUSH PRN ×2 (16:13→21:44)
[2018-03-09 17:30] LABS: HEMOGLOBIN A1C 5.6 % (4.3-6.0)
[2018-03-10] VITALS (10 sets, daily range): BP systolic 116–146; BP diastolic 70–79; PULSE 63–90; RESP 18–20; TEMP 99.3–100.3; O2SAT 97–100
[2018-03-10] MEDS: OXACILLIN INJ 2 GM in SODIUM CHLORIDE 0.9% INJ 100 ML IV SCH ×6 (00:24→20:02)
[2018-03-10] MEDS: IBUPROFEN 600 MG TAB PO SCH ×4 (00:24→18:30)
[2018-03-10] MEDS: SODIUM CHLOR 0.9% 1000 ML INJ 1,000 ML IV SCH ×3 (00:25→20:02)
[2018-03-10] MEDS: MORPHINE SULFATE 4 MG/ML INJ IV PUSH PRN ×3 (00:52→08:23)
[2018-03-10] MEDS ORDERED: HYDROmorphone HCL PF 0.5 MG/0.5 ML SYRINGE IV PUSH ONE (01:00)
[2018-03-10] MEDS: ACETAMINOPHEN/HYDROcodone 325 MG/7.5 MG TAB PO PRN ×5 (02:50→20:03)
[2018-03-10] MEDS ORDERED: PHARMACY ORDERED LAB ONE (05:45)
--- NOTE | 2018-03-10 08:10 | PD.ORT.PN ---
Subjective Subjective Remarks POD 4 s/p I&D left knee reports pain improving. using walker. states able to bend knee more Objective Vitals Vital Signs Date Time Temp Pulse Resp B/P (MAP) Pulse Ox O2 Delivery O2 Flow Rate FiO2 03/10/18 07:36 99.6 72 20 146/79 (101) 100 03/10/18 04:45 99.3 73 18 125/70 (88) 100 03/10/18 04:12 63 03/10/18 01:00 100.3 65 18 120/78 (92) 97 03/09/18 23:49 67 03/09/18 19:58 99.4 77 18 127/74 (91) 100 03/09/18 16:00 99.2 70 18 129/75 (93) 100 03/09/18 12:00 98.2 67 18 110/68 (82) 100 03/09/18 08:40 65 I/O 03/09/18 03/09/18 03/09/18 03/10/18 03/10/18 03/10/18 07:00 15:00 23:00 07:00 15:00 23:00 Intake Total 600 ml 980 ml 1252 ml 1100 ml Output Total 10 ml Balance 590 ml 980 ml 1252 ml 1100 ml Intake Oral 500 ml 780 ml IV Total 100 ml 200 ml 1252 ml 1100 ml Output Drainage Total 10 ml # Voids 3 7 2 # Bowel Movements 1 Result Diagram: 03/09/18 0600 03/09/18 0600 Objective Remarks LLE: dressings clean and dry. itnact. NVI. Assessment & Plan Assessment and Plan 1) Left Knee I&D - POD 4 -WBAT -ROM -cultures of knee are negative. patient has positive blood cultures however. -ortho clear for discharge -medical mgmt of bacteremia -no further treatment needed for left knee -ortho signing off -f/u in 2 weeks with eve for suture removal Saul Chan/Industrial Gas Production Operator PA Mar 10, 2018 08:10
[2018-03-10] MEDS: SODIUM CHLORIDE 0.9% FLUSH 10 ML FLUSH IV FLUSH SCH ×2 (08:19→20:03)
[2018-03-10] MEDS: DOCUSATE SODIUM 50 MG/SENNA 8.6 MG TAB PO SCH ×2 (08:20→20:02)
[2018-03-10 09:57] LABS: AUTOMATED NEUTROPHIL # 9.7 TH/MM3 (1.8-7.7); BASOPHIL % 0.3 % (0.0-2.0); EOSINOPHIL # 0.1 TH/MM3 (0-0.4); EOSINOPHIL % 0.5 % (0.0-4.0); HEMATOCRIT 30.9 % (35.0-46.0); HEMOGLOBIN 10.1 GM/DL (11.6-15.3); LYMPH % 7.3 % (9.0-44.0); LYMPHOCYTE # 0.9 TH/MM3 (1.0-4.8); MEAN CELL VOLUME 86.6 FL (80.0-100.0); MEAN CORPUSCULAR HEMOGLOBIN 28.4 PG (27.0-34.0); MEAN CORPUSCULAR HGB CONC 32.8 % (32.0-36.0); MEAN PLATELET VOLUME 9.1 FL (7.0-11.0); MONO % 9.4 % (0.0-8.0); MONOCYTE # 1.1 TH/MM3 (0-0.9); NEUT % 82.5 % (16.0-70.0); PLATELET COUNT 263 TH/MM3 (150-450); RED BLOOD COUNT 3.57 MIL/MM3 (4.00-5.30); RED CELL DISTRIBUTION WIDTH 13.4 % (11.6-17.2); WHITE BLOOD COUNT 11.7 TH/MM3 (4.0-11.0)
--- NOTE | 2018-03-10 12:22 | HHI.PR ---
Subjective Remarks This is a 33-year-old female who presents to the emergency room complaining of left knee pain. 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 Over the past several days, her left knee pain has worsened temporarily relieved with icing and elevation. It is severe that she is unable to bear weight. She denies IV drug use but admits to marijuana and cocaine. 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 Does not remember recent significant trauma or sustaining an open wound. Reports of low-grade fever. In the emergency department, joint aspiration was performed with cloudy yellow aspirate. She was then given IV vancomycin and Zosyn. Currently seen in the preop area awaiting orthopedic intervention. All other systems reviewed negative 6- F/u left knee pain. C/o knee pain requiring narcs. Also complaining of not able to sleep from frequent nursing intervention 03-08 COMPLAINS OF PAIN IN LEFT KNEE DW ID AND RN AND CM AND PT WANTS IBUPROFEN PLUS NORCO AND MORPHINE FOR PAIN WILL ADD SCHEDULED IBUPROFEN DW RN AND PT 03-09 LESS PAIN LEFT KNEE DW RN AND PATIENT CONTINUE ANTIBIOTICS PER ID AM LABS ON OXACILLIN 03-10 AWAIT ID CLEARANCE ON OXACILLIN LESS PAIN LEFT KNEE Objective Vitals Vital Signs Date Time Temp Pulse Resp B/P (MAP) Pulse Ox O2 Delivery O2 Flow Rate FiO2 03/10/18 12:10 99.7 80 20 129/79 (96) 99 03/10/18 07:36 99.6 72 20 146/79 (101) 100 03/10/18 04:45 99.3 73 18 125/70 (88) 100 03/10/18 04:12 63 03/10/18 01:00 100.3 65 18 120/78 (92) 97 03/09/18 23:49 67 03/09/18 19:58 99.4 77 18 127/74 (91) 100 03/09/18 16:00 99.2 70 18 129/75 (93) 100 I/O 03/09/18 03/09/18 03/09/18 03/10/18 03/10/18 03/10/18 07:00 15:00 23:00 07:00 15:00 23:00 Intake Total 600 ml 980 ml 1252 ml 1100 ml 100 ml Output Total 10 ml Balance 590 ml 980 ml 1252 ml 1100 ml 100 ml Intake Oral 500 ml 780 ml IV Total 100 ml 200 ml 1252 ml 1100 ml 100 ml Output Drainage Total 10 ml # Voids 3 7 2 # Bowel Movements 1 Result Diagram: 03/10/18 0838 03/09/18 0600 Other Results Laboratory Tests Test 03/07/18 22:43 03/09/18 06:00 03/10/18 08:38 Vancomycin Level Trough 2.8 MCG/ML White Blood Count 9.1 TH/MM3 11.7 TH/MM3 Red Blood Count 3.67 MIL/MM3 3.57 MIL/MM3 Hemoglobin 10.8 GM/DL 10.1 GM/DL Hematocrit 32.0 % 30.9 % Mean Corpuscular Volume 87.3 FL 86.6 FL Mean Corpuscular Hemoglobin 29.4 PG 28.4 PG Mean Corpuscular Hemoglobin Concent 33.7 % 32.8 % Red Cell Distribution Width 13.3 % 13.4 % Platelet Count 265 TH/MM3 263 TH/MM3 Mean Platelet Volume 8.9 FL 9.1 FL Neutrophils (%) (Auto) 73.8 % 82.5 % Lymphocytes (%) (Auto) 14.8 % 7.3 % Monocytes (%) (Auto) 10.5 % 9.4 % Eosinophils (%) (Auto) 0.5 % 0.5 % Basophils (%) (Auto) 0.4 % 0.3 % Neutrophils # (Auto) 6.7 TH/MM3 9.7 TH/MM3 Lymphocytes # (Auto) 1.4 TH/MM3 0.9 TH/MM3 Monocytes # (Auto) 1.0 TH/MM3 1.1 TH/MM3 Eosinophils # (Auto) 0.0 TH/MM3 0.1 TH/MM3 Basophils # (Auto) 0.0 TH/MM3 0.0 TH/MM3 CBC Comment DIFF FINAL DIFF FINAL Differential Comment Blood Urea Nitrogen 7 MG/DL Creatinine 0.44 MG/DL Random Glucose 79 MG/DL Total Protein 6.3 GM/DL Albumin 2.4 GM/DL Calcium Level 8.4 MG/DL Phosphorus Level 3.6 MG/DL Magnesium Level 2.1 MG/DL Alkaline Phosphatase 59 U/L Aspartate Amino Transf (AST/SGOT) 53 U/L Alanine Aminotransferase (ALT/SGPT) 58 U/L Total Bilirubin 0.3 MG/DL Sodium Level 143 MEQ/L Potassium Level 3.3 MEQ/L Chloride Level 109 MEQ/L Carbon Dioxide Level 24.4 MEQ/L Anion Gap 10 MEQ/L Estimat Glomerular Filtration Rate 166 ML/MIN Hemoglobin A1c 5.6 % Free Thyroxine 1.43 NG/DL Thyroid Stimulating Hormone 3rd Gen 0.787 uIU/ML Imaging Last Impressions Lower Extremity CT 03/06/18 Signed Impressions: CONCLUSION: Trace joint effusion. Otherwise within normal limits. Knee X-Ray 03/06/18 Signed Impressions: CONCLUSION: Left knee series within normal limits. Objective Remarks GENERAL: Awake alert and oriented 3 talkative and cooperative SKIN: Warm and dry. Left knee is dressed HEAD: Atraumatic. Normocephalic. EYES: Pupils equal and round. No scleral icterus. No injection or drainage. Extraocular muscles intact ENT: No nasal bleeding or discharge. Mucous membranes pink and moist. Tongue is midline NECK: Trachea midline. No JVD. Supple CARDIOVASCULAR: Regular rate and rhythm. S1-S2 no S3 or S4 RESPIRATORY: No accessory muscle use. Clear to auscultation. Breath sounds equal bilaterally. GASTROINTESTINAL: Abdomen soft, non-tender, nondistended. Hepatic and splenic margins not palpable. MUSCULOSKELETAL: Extremities without clubbing, cyanosis, or edema. No obvious deformities. NEUROLOGICAL: Awake and alert. No obvious cranial nerve deficits. Motor grossly within normal limits. Five out of 5 muscle strength in the arms and legs. Normal speech. Left knee is dressed PSYCHIATRIC: Appropriate mood and affect; insight and judgment normal. Procedures I and D left knee Date of Surgery: Mar 06, 2018 Preoperative Diagnosis: Probable septic arthritis left knee Postoperative Diagnosis: Procedure: Left knee arthrotomy with irrigation and debridement Anesthesia: General Surgeon: Rodrigo Choudhury Mottler Machine Feeder(s): Saul Chan PA-C The surgical procedure was assisted by my physician district administrative assistant. My P.A. presence was necessary throughout this case for the manipulation and positioning of the surgical extremity. My P.A. was assisting me throughout the duration of this procedure. The skill set of a physician district administrative assistant was medically necessary to complete this procedure. During the surgical case the surgical attendant was working at the back table and the physician district administrative assistant was directly assisting me. Operation and Findings: Patient was seen and evaluated preoperatively. Patient was found to have probable infection of the left knee joint. Knee effusion and erythema were noted. Left knee aspiration revealed elevated white blood cell count with no crystals. Patient had a very elevated C-reactive protein. Informed consent was obtained after detailed discussion of risk and benefits of surgery. Operative site was marked. Patient was brought to the operating room. IV sedation and GETA were administered by anesthesiologist. Operative leg was prepped with alcohol followed by Hibiclens and draped in usual sterile fashion. Timeout procedure was performed. Procedure began with a 3 cm incision over the lateral knee. Subcutaneous tissue dissected with Bovie. Iliotibial band was opened in line with fibers. The joint was now opened through arthrotomy. A moderate volume of purulent appearing fluid was found within the knee. Specimen was obtained for cultures and sensitivities. The knee joint was manipulated. The knee joint was palpated and loculations were manually debrided. A portion of the synovium was excised. After excisional debridement was complete, the wound was thoroughly irrigated with sterile saline. At this point the wound was clean. Capsule was closed with #1 PDS, Subcutaneous tissues closed with 3-0 PDS and skin was closed with 3-0 nylon. A DONNY drain was placed into the wound. Sterile dressings were applied. Patient was awakened and transferred to recovery in stable condition. Needle and sponge counts were correct Rodrigo Choudhury MD Mar 06, 2018 11:58 Medications and IVs Current Medications Sodium Chloride 1,000 ml @ 1,000 mls/hr Q1H ONCE IV Last administered on at 04:49; Start 03/06/18 at 04:30; Stop 03/06/18 at 05:29; Status DC Ketorolac Tromethamine (Toradol Inj) 15 mg ONCE ONCE IV PUSH Last administered on 03/06/18at 04:50; Start 03/06/18 at 04:30; Stop 03/06/18 at 04:31 ; Status DC Piperacillin Sod/ Tazobactam Sod 50 ml @ 100 mls/hr ONCE ONCE IV Last administered on 03/06/18at 06:43; Start 03/06/18 at 06:15; Stop 03/06/18 at 06:44 ; Status DC Vancomycin HCl 1000 mg/Sodium Chloride 250 ml @ 250 mls/hr ONCE ONCE IV Last administered on 03/06/18at 07:18; Start 03/06/18 at 06:15; Stop 03/06/18 at 07:14 ; Status DC Iohexol (Omnipaque 350 Inj) 96 ml STK-MED ONCE IVCONTRAST Last administered on 03/06/18at 06:08; Start 03/06/18 at 06:08; Stop 03/06/18 at 06:09; Status DC Pharmacy Profile Note 0 ml @ 0 mls/hr UNSCH OTHER ; Start 03/06/18 at 06:15; Stop 03/08/18 at 19:51; Status DC Cefepime HCl 1000 mg/Sodium Chloride 100 ml @ 200 mls/hr Q12H IV Last administered on 03/08/18at 07:34; Start 03/06/18 at 21:00; Stop 03/08/18 at 19:51 ; Status DC Sodium Chloride 1,000 ml @ 100 mls/hr Q10H IV Last administered on 03/10/18at 08:19; Start 03/06/18 at 06:10 Sodium Chloride (NS Flush) 2 ml UNSCH PRN IV FLUSH FLUSH AFTER USING IV ACCESS Last administered on 03/09/18at 16:14; Start 03/06/18 at 06:15 Sodium Chloride (NS Flush) 2 ml BID IV FLUSH Last administered on 03/09/18at 21: 44; Start 03/06/18 at 09:00 Metoclopramide HCl (Reglan Inj) 5 mg Q6H PRN IV PUSH NAUSEA OR VOMITING; Start 03/06/18 at 06:15 Acetaminophen (Tylenol) 650 mg Q6H PRN PO FEVER/PAIN SCALE 1 TO 2 Last administered on 03/07/18at 04:39; Start 03/06/18 at 06:15 Morphine Sulfate (Morphine Inj) 2 mg Q3H PRN IV PUSH breakthrough pain Last administered on 03/10/18at 08:23; Start 03/06/18 at 06:15 Oxycodone HCl (Roxicodone) 5 mg Q4H PRN PO PAIN SCALE 3 TO 5 Last administered on 03/06/18at 07:24; Start 03/06/18 at 06:15; Stop 03/07/18 at 07:00; Status DC Senna/Docusate Sodium (Mary Jo-Colace) 1 tab BID PO Last administered on at 09:08; Start 03/06/18 at 09:00 Magnesium Hydroxide (Milk Of Magnesia Liq) 30 ml Q12H PRN PO Mild constipation ; Start 03/06/18 at 06:15 Sennosides (Senokot) 17.2 mg Q12H PRN PO Moderate constipation Last administered on 03/07/18at 08:50; Start 03/06/18 at 06:15 Bisacodyl (Dulcolax Supp) 10 mg DAILY PRN RECTAL SEVERE CONSITIPATION/ IF NPO ; Start 03/06/18 at 06:15 Lactulose (Lactulose Liq) 30 ml DAILY PRN PO SEVERE CONSITIPATION/ IF PO; Start 03/06/18 at 06:15 Potassium Chloride (KCl) 30 meq ONCE ONCE PO Last administered on 03/06/18at 08 :37; Start 03/06/18 at 08:15; Stop 03/06/18 at 08:17; Status DC Lactated Ringer's 1,000 ml @ 30 mls/hr Q24H PRN IV SEE LABEL COMMENTS Last administered on 03/06/18at 10:00; Start 03/06/18 at 09:30; Stop 03/09/18 at 09:29 ; Status DC Sodium Chloride 500 ml @ 30 mls/hr [id number] PRN IV SEE LABEL COMMENTS; Start 08/13 at 09:30; Stop 03/09/18 at 09:29; Status DC Metoprolol Tartrate (Lopressor) 25 mg BLINTZE ROLLER PRN PO SEE LABEL COMMENTS; Start 03/06/18 at 09:30; Stop 03/09/18 at 09:29; Status DC Povidone Iodine (Betadine 5% Antisepsis Kit) 1 applic BLINTZE ROLLER PRN EACH NARE SEE LABEL COMMENTS; Start 03/06/18 at 09:30; Stop 03/09/18 at 09:29; Status DC Chlorhexidine Gluconate (Chlorhexidine 2% Cloth) 3 pack BLINTZE ROLLER PRN TOPICAL SEE LABEL COMMENTS; Start 03/06/18 at 09:30; Stop 03/09/18 at 09:29; Status DC Insulin Human Regular (NovoLIN R INJ) See Protocol Table ... BLINTZE ROLLER PRN SQ SEE PROTOCOL TABLE; Start 03/06/18 at 09:30; Stop 03/09/18 at 09:29; Status DC Vancomycin HCl 750 mg/Sodium Chloride 257.5 ml @ 257.5 mls/ hr Q12H IV Last administered on 03/08/18at 11:23; Start 03/06/18 at 23:00; Stop 03/08/18 at 18:21 ; Status DC Miscellaneous Information ([facility] Ordered Lab Info) SPECIFIC LAB TO BE ... ONCE ONCE .XX Last administered on 03/07/18at 22:41; Start 03/07/18 at 22:45; Stop 03/07/18 at 22:46; Status DC Gentamicin Sulfate (Gentamicin Inj) 240 mg STK-MED ONCE .ROUTE Last administered on 03/06/18at 11:43; Start 03/06/18 at 11:17; Stop 03/06/18 at 11:18 ; Status DC Cefazolin Sodium (Ancef Inj) 2,000 mg STK-MED ONCE .ROUTE ; Start 03/06/18 at 11 :18; Stop 03/06/18 at 11:19; Status DC Acetaminophen 100 ml @ As Directed STK-MED ONCE IV ; Start 03/06/18 at 11:24; Stop 03/06/18 at 11:25; Status DC Hydromorphone HCl (Dilaudid Pf Inj) 4 mg STK-MED ONCE .ROUTE ; Start 03/06/18 at 11:25; Stop 03/06/18 at 11:26; Status DC Miscellaneous Information ([facility] Post-op Orders (for Pharmacy)) STAT ONCE XX ; Start 03/06/18 at 12:00; Stop 03/06/18 at 12:21; Status DC Ondansetron HCl (Zofran Odt) 4 mg Q4H PRN PO NAUSEA OR VOMITING; Start at 12:30 Diphenhydramine HCl (Benadryl) 25 mg Q6H PRN PO ITCHING; Start 03/06/18 at 12: 00 Morphine Sulfate (*morphine INJ PERIprocedure ONLY) 4 mg STK-MED ONCE .ROUTE ; Start 03/06/18 at 12:17; Stop 03/06/18 at 12:18; Status DC Fentanyl Citrate (fentaNYL INJ) 200 mcg STK-MED ONCE .ROUTE ; Start 03/06/18 at 12:21; Stop 03/06/18 at 12:22; Status DC Morphine Sulfate (Morphine Inj) 8 mg STK-MED ONCE .ROUTE ; Start 03/06/18 at 12: 21; Stop 03/06/18 at 12:22; Status DC Morphine Sulfate (*morphine INJ PERIprocedure ONLY) 4 mg STK-MED ONCE .ROUTE Last administered on 03/06/18at 12:27; Start 03/06/18 at 12:27; Stop 03/06/18 at 12:28; Status DC Morphine Sulfate (Morphine Inj) 2 mg ONCE ONCE IV PUSH Last administered on 08/13at 22:44; Start 03/06/18 at 22:15; Stop 03/06/18 at 22:33; Status DC Acetaminophen/ Hydrocodone Bitart (Tony 7.5-325 Mg) 1 tab Q4H PRN PO pain 6- 10 Last administered on 03/10/18at 11:07; Start 03/07/18 at 07:00; Status Future hold Acetaminophen/ Hydrocodone Bitart (Tony 5-325 Mg) 1 tab Q4H PRN PO pain3-5; Start 03/07/18 at 07:00; Status Future hold Potassium Chloride (KCl) 30 meq ONCE ONCE PO Last administered on 03/07/18at 11 :12; Start 03/07/18 at 10:30; Stop 03/07/18 at 10:32; Status DC Sodium Chloride 500 ml @ As Directed STK-MED ONCE IV ; Start 03/06/18 at 12:00 ; Stop 03/07/18 at 15:18; Status DC Lidocaine HCl (Xylocaine-Mpf 1% Inj) 5 ml STK-MED ONCE OTHER ; Start 03/06/18 at 12:00; Stop 03/07/18 at 15:18; Status DC Rocuronium Clarita (Zemuron Inj) 50 mg STK-MED ONCE IV PUSH ; Start 03/06/18 at 12:00; Stop 03/07/18 at 15:18; Status DC Succinylcholine Chloride (Quelicin Inj) 200 mg STK-MED ONCE IV ; Start 03/06/18 at 12:00; Stop 03/07/18 at 15:18; Status DC Dexamethasone Sodium Phosphate (Decadron Inj) 8 mg STK-MED ONCE IV ; Start 03/06 at 12:00; Stop 03/07/18 at 15:18; Status DC Propofol (Diprivan 200 Mg/20 ml Inj) 200 mg STK-MED ONCE IV ; Start 03/06/18 at 12:00; Stop 03/07/18 at 15:18; Status DC Melatonin (Melatonin) 5 mg ONCE ONCE PO Last administered on 03/07/18at 23:36; Start 03/07/18 at 23:00; Stop 03/07/18 at 23:02; Status DC Ibuprofen (Motrin) 600 mg Q6H PRN PO PAIN 3 TO 10 Last administered on at 13:57; Start 03/08/18 at 12:45; Stop 03/08/18 at 14:35; Status DC Ibuprofen (Motrin) 600 mg Q6H PO Last administered on 03/10/18at 06:45; Start at 19:00 Potassium Chloride (KCl) 40 meq ONCE ONCE PO Last administered on 03/08/18at 15 :25; Start 03/08/18 at 14:45; Stop 03/08/18 at 14:51; Status DC Potassium Chloride (KCl) 40 meq ONCE ONCE PO Last administered on 03/08/18at 16 :50; Start 03/08/18 at 17:00; Stop 03/08/18 at 17:01; Status DC Vancomycin HCl 1250 mg/Sodium Chloride 262.5 ml @ 250 mls/hr Q12H IV Last administered on 03/08/18at 18:38; Start 03/08/18 at 18:00; Stop 03/08/18 at 19:51 ; Status DC Miscellaneous Information ([facility] Ordered Lab Info) SPECIFIC LAB TO BE ... ONCE ONCE .XX ; Start 03/10/18 at 05:45; Stop 03/10/18 at 05:46; Status Cancel Oxacillin Sodium 2 gm/Sodium Chloride 100 ml @ 200 mls/hr Q4H IV Last administered on 03/10/18at 08:20; Start 03/08/18 at 20:00 Melatonin (Melatonin) 5 mg HS PRN PO INSOMNIA Last administered on 03/08/18at 22 :10; Start 03/08/18 at 20:30 Potassium Chloride (KCl) 40 meq ONCE ONCE PO Last administered on 03/09/18at 11 :32; Start 03/09/18 at 11:15; Stop 03/09/18 at 11:16; Status DC Potassium Chloride (KCl) 40 meq ONCE ONCE PO Last administered on 03/09/18at 13 :03; Start 03/09/18 at 13:15; Stop 03/09/18 at 13:16; Status DC Hydromorphone HCl (Dilaudid Pf Inj) 0.5 mg ONCE ONCE IV PUSH ; Start 03/10/18 at 01:00; Stop 03/10/18 at 01:01; Status DC A/P Problem List: (1) Sepsis ICD Code: A41.9 - Sepsis, unspecified organism Status: Acute (2) Left knee pain ICD Code: M25.562 - Pain in left knee Status: Acute Assessment and Plan This is a 33-year-old female who presents to the emergency room complaining of left knee pain and swelling with decreased range of motion. She also has fever. In the emergency department, joint aspiration was performed with cloudy yellow aspirate. Likely Septic joint, left knee. Synovial fluid WBC over 31,000. Continue IV OXACILLIN and pain management with hydrocodone and morphine sulfate. Patient counseled regarding narcotics. Wd care. Follow-up cultures. -- AWAIT ID CLEARANCE Gram-positive cocci bacteremia. Continue OXACILLIN and consult infectious disease Hypokalemia. Replace with 30 mEq p.o. potassium 1. --WILL REPLACE AGAIN Abnormal urinalysis. No UTI symptoms. Follow-up urine culture Polysubstance abuse. Counseled DVT prophylaxis with SCD and early ambulation ID has been consulted A.m. labs Decreased pain control by adding ibuprofen scheduled Discussed with patient and hospice rn Planning Await infectious disease clearance Problem Qualifiers (1) Sepsis: Qualified Codes: A41.9 - Sepsis, unspecified organism (2) Left knee pain: Qualified Codes: M25.562 - Pain in left knee Ladarius Pérez DO Mar 10, 2018 12:22
--- NOTE | 2018-03-10 15:34 | ECHRPT ---
Indication: VEGETATIONS CONCLUSIONS Normal left ventricular size. Wall thickness is normal. The left ventricular systolic function is normal with an estimated ejection fraction in the range of 55-60%. Trace mitral valve regurgitation. BP: / HR: Rhythm: MEASUREMENTS (Male / Female) Normal Values Technical Quality: 2D ECHO LV Diastolic Diameter PLAX 4.5 cm 4.2 - 5.9 / 3.9 - 5.3 cm LV Systolic Diameter PLAX 2.9 cm IVS Diastolic Thickness 0.8 cm 0.6 - 1.0 / 0.6 - 0.9 cm LVPW Diastolic Thickness 0.6 cm 0.6 - 1.0 / 0.6 - 0.9 cm LV Relative Wall Thickness 0.3 M-MODE Aortic Root Diameter MM 2.6 cm AV Cusp Separation MM 1.8 cm DOPPLER TR Peak Velocity 273.0 cm/s TR Peak Gradient 29.8 mmHg FINDINGS LEFT VENTRICLE Normal left ventricular size. Wall thickness is normal. The left ventricular systolic function is normal with an estimated ejection fraction in the range of 55-60%. RIGHT VENTRICLE Normal right ventricular size and systolic function. LEFT ATRIUM The left atrial size is normal. RIGHT ATRIUM The right atrial size is normal. ATRIAL SEPTUM Normal atrial septal thickness without atrial level shunting by limited color doppler interrogation. AORTA The aortic root and proximal ascending aorta are normal in size on limited imaging. MITRAL VALVE Trace mitral valve regurgitation. AORTIC VALVE Trileaflet aortic valve. No aortic valve stenosis or regurgitation. TRICUSPID VALVE No vegetations noted. No tricuspid valve stenosis or regurgitation. Mild thickening of the tricuspi d valve leaflets. PULMONARY VALVE No vegetations noted VESSELS The inferior vena cava is normal in size. PERICARDIUM There is a trivial pericardial effusion present. Byron Montes MD, FACC (Electronically Signed) Final Date:10 March 2018 15:33
[2018-03-10 20:27] LABS: ALBUMIN 2.4 GM/DL (3.4-5.0); AST (GOT) 25 U/L (15-37); BICARBONATE 21.2 MEQ/L (21.0-32.0); BLOOD UREA NITROGEN 4 MG/DL (7-18); CALCIUM 8.2 MG/DL (8.5-10.1); CHLORIDE 106 MEQ/L (98-107); CREATININE 0.48 MG/DL (0.50-1.00); GLOMERULAR FILTRATION RATE 150 ML/MIN (>89); GLUCOSE,RANDOM 106 MG/DL (74-106); MAGNESIUM 1.8 MG/DL (1.5-2.5); SODIUM (NA) 142 MEQ/L (136-145)
[2018-03-10 20:32] LABS: ALKALINE PHOSPHATASE 53 U/L (45-117); ALT (GPT) 49 U/L (10-53); PHOSPHORUS 4.2 MG/DL (2.5-4.9); TOTAL BILIRUBIN ADULT 0.3 MG/DL (0.2-1.0); TOTAL PROTEIN 6.2 GM/DL (6.4-8.2)
[2018-03-11] VITALS (11 sets, daily range): BP systolic 107–133; BP diastolic 54–77; PULSE 73–116; RESP 16–18; TEMP 98–99.7; O2SAT 98–100
[2018-03-11] MEDS: ACETAMINOPHEN/HYDROcodone 325 MG/7.5 MG TAB PO PRN ×6 (00:09→20:27)
[2018-03-11] MEDS: IBUPROFEN 600 MG TAB PO SCH ×4 (00:09→18:24)
[2018-03-11] MEDS: OXACILLIN INJ 2 GM in SODIUM CHLORIDE 0.9% INJ 100 ML IV SCH ×6 (00:09→20:26)
[2018-03-11] MEDS: SODIUM CHLOR 0.9% 1000 ML INJ 1,000 ML IV SCH ×2 (06:21→16:31)
[2018-03-11] MEDS: SODIUM CHLORIDE 0.9% FLUSH 10 ML FLUSH IV FLUSH SCH ×2 (07:39→20:26)
[2018-03-11] MEDS: DOCUSATE SODIUM 50 MG/SENNA 8.6 MG TAB PO SCH ×2 (08:50→20:26)
[2018-03-11 11:11] LABS: AUTOMATED NEUTROPHIL # 8.2 TH/MM3 (1.8-7.7); BASOPHIL % 0.2 % (0.0-2.0); EOSINOPHIL # 0.1 TH/MM3 (0-0.4); EOSINOPHIL % 0.9 % (0.0-4.0); HEMATOCRIT 29.2 % (35.0-46.0); HEMOGLOBIN 9.8 GM/DL (11.6-15.3); LYMPH % 10.1 % (9.0-44.0); MEAN CELL VOLUME 86.9 FL (80.0-100.0); MEAN CORPUSCULAR HEMOGLOBIN 29.2 PG (27.0-34.0); MEAN CORPUSCULAR HGB CONC 33.6 % (32.0-36.0); MEAN PLATELET VOLUME 8.7 FL (7.0-11.0); MONO % 8.7 % (0.0-8.0); MONOCYTE # 0.9 TH/MM3 (0-0.9); NEUT % 80.1 % (16.0-70.0); PLATELET COUNT 272 TH/MM3 (150-450); RED BLOOD COUNT 3.35 MIL/MM3 (4.00-5.30); RED CELL DISTRIBUTION WIDTH 13.2 % (11.6-17.2); WHITE BLOOD COUNT 10.3 TH/MM3 (4.0-11.0)
--- NOTE | 2018-03-11 11:18 | HHI.PR ---
Subjective Remarks This is a 33-year-old female who presents to the emergency room complaining of left knee pain. 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 Over the past several days, her left knee pain has worsened temporarily relieved with icing and elevation. It is severe that she is unable to bear weight. She denies IV drug use but admits to marijuana and cocaine. 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 Does not remember recent significant trauma or sustaining an open wound. Reports of low-grade fever. In the emergency department, joint aspiration was performed with cloudy yellow aspirate. She was then given IV vancomycin and Zosyn. Currently seen in the preop area awaiting orthopedic intervention. All other systems reviewed negative 6-12 F/u left knee pain. C/o knee pain requiring narcs. Also complaining of not able to sleep from frequent nursing intervention 6 COMPLAINS OF PAIN IN LEFT KNEE DW ID AND RN AND CM AND PT WANTS IBUPROFEN PLUS NORCO AND MORPHINE FOR PAIN WILL ADD SCHEDULED IBUPROFEN DW RN AND PT 03-09 LESS PAIN LEFT KNEE DW RN AND PATIENT CONTINUE ANTIBIOTICS PER ID AM LABS ON OXACILLIN 03-10 AWAIT ID CLEARANCE ON OXACILLIN LESS PAIN LEFT KNEE 16 ECHO IS STABLE AWAIT ID CLEARANCE DW RN AND PT Objective Vitals Vital Signs Date Time Temp Pulse Resp B/P (MAP) Pulse Ox O2 Delivery O2 Flow Rate FiO2 03/11/18 08:34 74 03/11/18 08:00 98.3 91 16 114/69 (84) 98 03/11/18 04:42 99.1 85 18 107/69 (82) 100 03/11/18 00:25 99.4 73 18 119/66 (83) 99 03/11/18 00:00 77 03/10/18 20:00 85 03/10/18 19:51 99.5 84 20 132/70 (90) 100 03/10/18 15:47 99.3 90 20 116/72 (87) 99 03/10/18 12:34 80 03/10/18 12:10 99.7 80 20 129/79 (96) 99 I/O 03/10/18 03/10/18 03/10/18 03/11/18 03/11/18 03/11/18 07:00 15:00 23:00 07:00 15:00 23:00 Intake Total 1100 ml 200 ml 1820 ml 100 ml 100 ml Balance 1100 ml 200 ml 1820 ml 100 ml 100 ml Intake Oral 720 ml IV Total 1100 ml 200 ml 1100 ml 100 ml 100 ml # Voids 2 4 Result Diagram: 03/10/18 0838 03/10/18 0838 Other Results Laboratory Tests Test 03/09/18 06:00 03/10/18 08:38 03/11/18 10:31 White Blood Count 9.1 TH/MM3 11.7 TH/MM3 Red Blood Count 3.67 MIL/MM3 3.57 MIL/MM3 Hemoglobin 10.8 GM/DL 10.1 GM/DL Hematocrit 32.0 % 30.9 % Mean Corpuscular Volume 87.3 FL 86.6 FL Mean Corpuscular Hemoglobin 29.4 PG 28.4 PG Mean Corpuscular Hemoglobin Concent 33.7 % 32.8 % Red Cell Distribution Width 13.3 % 13.4 % Platelet Count 265 TH/MM3 263 TH/MM3 Mean Platelet Volume 8.9 FL 9.1 FL Neutrophils (%) (Auto) 73.8 % 82.5 % Lymphocytes (%) (Auto) 14.8 % 7.3 % Monocytes (%) (Auto) 10.5 % 9.4 % Eosinophils (%) (Auto) 0.5 % 0.5 % Basophils (%) (Auto) 0.4 % 0.3 % Neutrophils # (Auto) 6.7 TH/MM3 9.7 TH/MM3 Lymphocytes # (Auto) 1.4 TH/MM3 0.9 TH/MM3 Monocytes # (Auto) 1.0 TH/MM3 1.1 TH/MM3 Eosinophils # (Auto) 0.0 TH/MM3 0.1 TH/MM3 Basophils # (Auto) 0.0 TH/MM3 0.0 TH/MM3 CBC Comment DIFF FINAL DIFF FINAL Differential Comment Blood Urea Nitrogen 7 MG/DL 4 MG/DL Creatinine 0.44 MG/DL 0.48 MG/DL Random Glucose 79 MG/DL 106 MG/DL Total Protein 6.3 GM/DL 6.2 GM/DL Albumin 2.4 GM/DL 2.4 GM/DL Calcium Level 8.4 MG/DL 8.2 MG/DL Phosphorus Level 3.6 MG/DL 4.2 MG/DL Magnesium Level 2.1 MG/DL 1.8 MG/DL Alkaline Phosphatase 59 U/L 53 U/L Aspartate Amino Transf (AST/SGOT) 53 U/L 25 U/L Alanine Aminotransferase (ALT/SGPT) 58 U/L 49 U/L Total Bilirubin 0.3 MG/DL 0.3 MG/DL Sodium Level 143 MEQ/L 142 MEQ/L Potassium Level 3.3 MEQ/L 3.5 MEQ/L Chloride Level 109 MEQ/L 106 MEQ/L Carbon Dioxide Level 24.4 MEQ/L 21.2 MEQ/L Anion Gap 10 MEQ/L 15 MEQ/L Estimat Glomerular Filtration Rate 166 ML/MIN 150 ML/MIN Hemoglobin A1c 5.6 % Free Thyroxine 1.43 NG/DL Thyroid Stimulating Hormone 3rd Gen 0.787 uIU/ML Imaging Last Impressions Lower Extremity CT 03/06/18 0000 Signed Impressions: CONCLUSION: Trace joint effusion. Otherwise within normal limits. Knee X-Ray 03/06/18 0000 Signed Impressions: CONCLUSION: Left knee series within normal limits. Objective Remarks GENERAL: Awake alert and oriented 3 talkative and cooperative SKIN: Warm and dry. Left knee is dressed HEAD: Atraumatic. Normocephalic. EYES: Pupils equal and round. No scleral icterus. No injection or drainage. Extraocular muscles intact ENT: No nasal bleeding or discharge. Mucous membranes pink and moist. Tongue is midline NECK: Trachea midline. No JVD. Supple CARDIOVASCULAR: Regular rate and rhythm. S1-S2 no S3 or S4 RESPIRATORY: No accessory muscle use. Clear to auscultation. Breath sounds equal bilaterally. GASTROINTESTINAL: Abdomen soft, non-tender, nondistended. Hepatic and splenic margins not palpable. MUSCULOSKELETAL: Extremities without clubbing, cyanosis, or edema. No obvious deformities. NEUROLOGICAL: Awake and alert. No obvious cranial nerve deficits. Motor grossly within normal limits. Five out of 5 muscle strength in the arms and legs. Normal speech. Left knee is dressed PSYCHIATRIC: Appropriate mood and affect; insight and judgment normal. Procedures I and D left knee Date of Surgery: Mar 06, 2018 Preoperative Diagnosis: Probable septic arthritis left knee Postoperative Diagnosis: Procedure: Left knee arthrotomy with irrigation and debridement Anesthesia: General Surgeon: Rodrigo Choudhury Medical Reception Specialist(s): Saul Chan PA-C The surgical procedure was assisted by my physician virtual office assistant. My P.A. presence was necessary throughout this case for the manipulation and positioning of the surgical extremity. My P.A. was assisting me throughout the duration of this procedure. The skill set of a physician virtual office assistant was medically necessary to complete this procedure. During the surgical case the rn neurosurgical was working at the back table and the physician virtual office assistant was directly assisting me. Operation and Findings: Patient was seen and evaluated preoperatively. Patient was found to have probable infection of the left knee joint. Knee effusion and erythema were noted. Left knee aspiration revealed elevated white blood cell count with no crystals. Patient had a very elevated C-reactive protein. Informed consent was obtained after detailed discussion of risk and benefits of surgery. Operative site was marked. Patient was brought to the operating room. IV sedation and GETA were administered by anesthesiologist. Operative leg was prepped with alcohol followed by Hibiclens and draped in usual sterile fashion. Timeout procedure was performed. Procedure began with a 3 cm incision over the lateral knee. Subcutaneous tissue dissected with Bovie. Iliotibial band was opened in line with fibers. The joint was now opened through arthrotomy. A moderate volume of purulent appearing fluid was found within the knee. Specimen was obtained for cultures and sensitivities. The knee joint was manipulated. The knee joint was palpated and loculations were manually debrided. A portion of the synovium was excised. After excisional debridement was complete, the wound was thoroughly irrigated with sterile saline. At this point the wound was clean. Capsule was closed with #1 PDS, Subcutaneous tissues closed with 3-0 PDS and skin was closed with 3-0 nylon. A DONNY drain was placed into the wound. Sterile dressings were applied. Patient was awakened and transferred to recovery in stable condition. Needle and sponge counts were correct Rodrigo Choudhury MD Mar 06, 2018 11:58 Medications and IVs Current Medications Sodium Chloride 1,000 ml @ 1,000 mls/hr Q1H ONCE IV Last administered on at 04:49; Start 03/06/18 at 04:30; Stop 03/06/18 at 05:29; Status DC Ketorolac Tromethamine (Toradol Inj) 15 mg ONCE ONCE IV PUSH Last administered on 03/06/18at 04:50; Start 03/06/18 at 04:30; Stop 03/06/18 at 04:31 ; Status DC Piperacillin Sod/ Tazobactam Sod 50 ml @ 100 mls/hr ONCE ONCE IV Last administered on 03/06/18at 06:43; Start 03/06/18 at 06:15; Stop 03/06/18 at 06:44 ; Status DC Vancomycin HCl 1000 mg/Sodium Chloride 250 ml @ 250 mls/hr ONCE ONCE IV Last administered on 03/06/18at 07:18; Start 03/06/18 at 06:15; Stop 03/06/18 at 07:14 ; Status DC Iohexol (Omnipaque 350 Inj) 96 ml STK-MED ONCE IVCONTRAST Last administered on 03/06/18at 06:08; Start 03/06/18 at 06:08; Stop 03/06/18 at 06:09; Status DC Pharmacy Profile Note 0 ml @ 0 mls/hr UNSCH OTHER ; Start 03/06/18 at 06:15; Stop 03/08/18 at 19:51; Status DC Cefepime HCl 1000 mg/Sodium Chloride 100 ml @ 200 mls/hr Q12H IV Last administered on 03/08/18at 07:34; Start 03/06/18 at 21:00; Stop 03/08/18 at 19:51 ; Status DC Sodium Chloride 1,000 ml @ 100 mls/hr Q10H IV Last administered on 03/11/18at 06:21; Start 03/06/18 at 06:10 Sodium Chloride (NS Flush) 2 ml UNSCH PRN IV FLUSH FLUSH AFTER USING IV ACCESS Last administered on 03/09/18at 16:14; Start 03/06/18 at 06:15 Sodium Chloride (NS Flush) 2 ml BID IV FLUSH Last administered on 03/09/18at 21: 44; Start 03/06/18 at 09:00 Metoclopramide HCl (Reglan Inj) 5 mg Q6H PRN IV PUSH NAUSEA OR VOMITING; Start 03/06/18 at 06:15 Acetaminophen (Tylenol) 650 mg Q6H PRN PO FEVER/PAIN SCALE 1 TO 2 Last administered on 03/07/18at 04:39; Start 03/06/18 at 06:15 Morphine Sulfate (Morphine Inj) 2 mg Q3H PRN IV PUSH breakthrough pain Last administered on 03/10/18at 08:23; Start 03/06/18 at 06:15 Oxycodone HCl (Roxicodone) 5 mg Q4H PRN PO PAIN SCALE 3 TO 5 Last administered on 03/06/18at 07:24; Start 03/06/18 at 06:15; Stop 03/07/18 at 07:00; Status DC Senna/Docusate Sodium (Mary Jo-Colace) 1 tab BID PO Last administered on at 08:50; Start 03/06/18 at 09:00 Magnesium Hydroxide (Milk Of Magnesia Liq) 30 ml Q12H PRN PO Mild constipation ; Start 03/06/18 at 06:15 Sennosides (Senokot) 17.2 mg Q12H PRN PO Moderate constipation Last administered on 03/07/18at 08:50; Start 03/06/18 at 06:15 Bisacodyl (Dulcolax Supp) 10 mg DAILY PRN RECTAL SEVERE CONSITIPATION/ IF NPO ; Start 03/06/18 at 06:15 Lactulose (Lactulose Liq) 30 ml DAILY PRN PO SEVERE CONSITIPATION/ IF PO; Start 03/06/18 at 06:15 Potassium Chloride (KCl) 30 meq ONCE ONCE PO Last administered on 03/06/18at 08 :37; Start 03/06/18 at 08:15; Stop 03/06/18 at 08:17; Status DC Lactated Ringer's 1,000 ml @ 30 mls/hr Q24H PRN IV SEE LABEL COMMENTS Last administered on 03/06/18at 10:00; Start 03/06/18 at 09:30; Stop 03/09/18 at 09:29 ; Status DC Sodium Chloride 500 ml @ 30 mls/hr [id number] PRN IV SEE LABEL COMMENTS; Start 08/13 at 09:30; Stop 03/09/18 at 09:29; Status DC Metoprolol Tartrate (Lopressor) 25 mg NURSING OFFICER PRN PO SEE LABEL COMMENTS; Start 03/06/18 at 09:30; Stop 03/09/18 at 09:29; Status DC Povidone Iodine (Betadine 5% Antisepsis Kit) 1 applic NURSING OFFICER PRN EACH NARE SEE LABEL COMMENTS; Start 03/06/18 at 09:30; Stop 03/09/18 at 09:29; Status DC Chlorhexidine Gluconate (Chlorhexidine 2% Cloth) 3 pack NURSING OFFICER PRN TOPICAL SEE LABEL COMMENTS; Start 03/06/18 at 09:30; Stop 03/09/18 at 09:29; Status DC Insulin Human Regular (NovoLIN R INJ) See Protocol Table ... NURSING OFFICER PRN SQ SEE PROTOCOL TABLE; Start 03/06/18 at 09:30; Stop 03/09/18 at 09:29; Status DC Vancomycin HCl 750 mg/Sodium Chloride 257.5 ml @ 257.5 mls/ hr Q12H IV Last administered on 03/08/18at 11:23; Start 03/06/18 at 23:00; Stop 03/08/18 at 18:21 ; Status DC Miscellaneous Information ([facility] Ordered Lab Info) SPECIFIC LAB TO BE ... ONCE ONCE .XX Last administered on 03/07/18at 22:41; Start 03/07/18 at 22:45; Stop 03/07/18 at 22:46; Status DC Gentamicin Sulfate (Gentamicin Inj) 240 mg STK-MED ONCE .ROUTE Last administered on 03/06/18at 11:43; Start 03/06/18 at 11:17; Stop 03/06/18 at 11:18 ; Status DC Cefazolin Sodium (Ancef Inj) 2,000 mg STK-MED ONCE .ROUTE ; Start 03/06/18 at 11 :18; Stop 03/06/18 at 11:19; Status DC Acetaminophen 100 ml @ As Directed STK-MED ONCE IV ; Start 03/06/18 at 11:24; Stop 03/06/18 at 11:25; Status DC Hydromorphone HCl (Dilaudid Pf Inj) 4 mg STK-MED ONCE .ROUTE ; Start 03/06/18 at 11:25; Stop 03/06/18 at 11:26; Status DC Miscellaneous Information ([facility] Post-op Orders (for Pharmacy)) STAT ONCE XX ; Start 03/06/18 at 12:00; Stop 03/06/18 at 12:21; Status DC Ondansetron HCl (Zofran Odt) 4 mg Q4H PRN PO NAUSEA OR VOMITING; Start at 12:30 Diphenhydramine HCl (Benadryl) 25 mg Q6H PRN PO ITCHING; Start 03/06/18 at 12: 00 Morphine Sulfate (*morphine INJ PERIprocedure ONLY) 4 mg STK-MED ONCE .ROUTE ; Start 03/06/18 at 12:17; Stop 03/06/18 at 12:18; Status DC Fentanyl Citrate (fentaNYL INJ) 200 mcg STK-MED ONCE .ROUTE ; Start 03/06/18 at 12:21; Stop 03/06/18 at 12:22; Status DC Morphine Sulfate (Morphine Inj) 8 mg STK-MED ONCE .ROUTE ; Start 03/06/18 at 12: 21; Stop 03/06/18 at 12:22; Status DC Morphine Sulfate (*morphine INJ PERIprocedure ONLY) 4 mg STK-MED ONCE .ROUTE Last administered on 03/06/18at 12:27; Start 03/06/18 at 12:27; Stop 03/06/18 at 12:28; Status DC Morphine Sulfate (Morphine Inj) 2 mg ONCE ONCE IV PUSH Last administered on 08/13at 22:44; Start 03/06/18 at 22:15; Stop 03/06/18 at 22:33; Status DC Acetaminophen/ Hydrocodone Bitart (Gifford 7.5-325 Mg) 1 tab Q4H PRN PO pain 6- 10 Last administered on 03/11/18at 08:50; Start 03/07/18 at 07:00; Status Future hold Acetaminophen/ Hydrocodone Bitart (Gifford 5-325 Mg) 1 tab Q4H PRN PO pain3-5; Start 03/07/18 at 07:00; Status Future hold Potassium Chloride (KCl) 30 meq ONCE ONCE PO Last administered on 03/07/18at 11 :12; Start 03/07/18 at 10:30; Stop 03/07/18 at 10:32; Status DC Sodium Chloride 500 ml @ As Directed STK-MED ONCE IV ; Start 03/06/18 at 12:00 ; Stop 03/07/18 at 15:18; Status DC Lidocaine HCl (Xylocaine-Mpf 1% Inj) 5 ml STK-MED ONCE OTHER ; Start 03/06/18 at 12:00; Stop 03/07/18 at 15:18; Status DC Rocuronium Parnell (Zemuron Inj) 50 mg STK-MED ONCE IV PUSH ; Start 03/06/18 at 12:00; Stop 03/07/18 at 15:18; Status DC Succinylcholine Chloride (Quelicin Inj) 200 mg STK-MED ONCE IV ; Start 03/06/18 at 12:00; Stop 03/07/18 at 15:18; Status DC Dexamethasone Sodium Phosphate (Decadron Inj) 8 mg STK-MED ONCE IV ; Start 03/06 at 12:00; Stop 03/07/18 at 15:18; Status DC Propofol (Diprivan 200 Mg/20 ml Inj) 200 mg STK-MED ONCE IV ; Start 03/06/18 at 12:00; Stop 03/07/18 at 15:18; Status DC Melatonin (Melatonin) 5 mg ONCE ONCE PO Last administered on 03/07/18at 23:36; Start 03/07/18 at 23:00; Stop 03/07/18 at 23:02; Status DC Ibuprofen (Motrin) 600 mg Q6H PRN PO PAIN 3 TO 10 Last administered on at 13:57; Start 03/08/18 at 12:45; Stop 03/08/18 at 14:35; Status DC Ibuprofen (Motrin) 600 mg Q6H PO Last administered on 03/11/18at 06:20; Start at 19:00 Potassium Chloride (KCl) 40 meq ONCE ONCE PO Last administered on 03/08/18at 15 :25; Start 03/08/18 at 14:45; Stop 03/08/18 at 14:51; Status DC Potassium Chloride (KCl) 40 meq ONCE ONCE PO Last administered on 03/08/18at 16 :50; Start 03/08/18 at 17:00; Stop 03/08/18 at 17:01; Status DC Vancomycin HCl 1250 mg/Sodium Chloride 262.5 ml @ 250 mls/hr Q12H IV Last administered on 03/08/18at 18:38; Start 03/08/18 at 18:00; Stop 03/08/18 at 19:51 ; Status DC Miscellaneous Information ([facility] Ordered Lab Info) SPECIFIC LAB TO BE ... ONCE ONCE .XX ; Start 03/10/18 at 05:45; Stop 03/10/18 at 05:46; Status Cancel Oxacillin Sodium 2 gm/Sodium Chloride 100 ml @ 200 mls/hr Q4H IV Last administered on 03/11/18at 08:50; Start 03/08/18 at 20:00 Melatonin (Melatonin) 5 mg HS PRN PO INSOMNIA Last administered on 03/08/18at 22 :10; Start 03/08/18 at 20:30 Potassium Chloride (KCl) 40 meq ONCE ONCE PO Last administered on 03/09/18at 11 :32; Start 03/09/18 at 11:15; Stop 03/09/18 at 11:16; Status DC Potassium Chloride (KCl) 40 meq ONCE ONCE PO Last administered on 03/09/18at 13 :03; Start 03/09/18 at 13:15; Stop 03/09/18 at 13:16; Status DC Hydromorphone HCl (Dilaudid Pf Inj) 0.5 mg ONCE ONCE IV PUSH ; Start 03/10/18 at 01:00; Stop 03/10/18 at 01:01; Status DC A/P Problem List: (1) Sepsis ICD Code: A41.9 - Sepsis, unspecified organism Status: Acute (2) Left knee pain ICD Code: M25.562 - Pain in left knee Status: Acute Assessment and Plan This is a 33-year-old female who presents to the emergency room complaining of left knee pain and swelling with decreased range of motion. She also has fever. In the emergency department, joint aspiration was performed with cloudy yellow aspirate. Likely Septic joint, left knee. Synovial fluid WBC over 31,000. Continue IV OXACILLIN and pain management with hydrocodone and morphine sulfate. Patient counseled regarding narcotics. WOUNDD care. Follow-up cultures. -- AWAIT ID CLEARANCE Gram-positive cocci bacteremia. Continue OXACILLIN and consult infectious disease Hypokalemia. Replace with 30 mEq p.o. potassium 1. --WILL REPLACE AGAIN Abnormal urinalysis. No UTI symptoms. Follow-up urine culture Polysubstance abuse. Counseled DVT prophylaxis with SCD and early ambulation ID has been consulted A.m. labs Decreased pain control by adding ibuprofen scheduled Discussed with patient and editorial clerk Planning Await infectious disease clearance Problem Qualifiers (1) Sepsis: Qualified Codes: A41.9 - Sepsis, unspecified organism (2) Left knee pain: Qualified Codes: M25.562 - Pain in left knee Ladarius Pérez DO Mar 11, 2018 11:18
[2018-03-11 11:30] LABS: ALBUMIN 2.3 GM/DL (3.4-5.0); AST (GOT) 18 U/L (15-37); BICARBONATE 27.7 MEQ/L (21.0-32.0); BLOOD UREA NITROGEN 6 MG/DL (7-18); CALCIUM 8.5 MG/DL (8.5-10.1); CHLORIDE 105 MEQ/L (98-107); CREATININE 0.54 MG/DL (0.50-1.00); GLOMERULAR FILTRATION RATE 131 ML/MIN (>89); GLUCOSE,RANDOM 135 MG/DL (74-106); MAGNESIUM 2.2 MG/DL (1.5-2.5); SODIUM (NA) 142 MEQ/L (136-145)
[2018-03-11 11:31] LABS: ALT (GPT) 39 U/L (10-53)
[2018-03-11 11:33] LABS: ALKALINE PHOSPHATASE 57 U/L (45-117); PHOSPHORUS 3.8 MG/DL (2.5-4.9); TOTAL BILIRUBIN ADULT 0.3 MG/DL (0.2-1.0); TOTAL PROTEIN 6.2 GM/DL (6.4-8.2)
[2018-03-12] VITALS (7 sets, daily range): BP systolic 115–130; BP diastolic 68–78; PULSE 65–88; RESP 16–18; TEMP 98–99.1; O2SAT 98–100
[2018-03-12] MEDS: IBUPROFEN 600 MG TAB PO SCH ×4 (00:42→18:40)
[2018-03-12] MEDS: ACETAMINOPHEN/HYDROcodone 325 MG/7.5 MG TAB PO PRN ×6 (00:42→20:47)
[2018-03-12] MEDS: OXACILLIN INJ 2 GM in SODIUM CHLORIDE 0.9% INJ 100 ML IV SCH ×6 (00:43→20:48)
[2018-03-12] MEDS: SODIUM CHLOR 0.9% 1000 ML INJ 1,000 ML IV SCH ×2 (04:48→09:57)
[2018-03-12 08:28] LABS: AUTOMATED NEUTROPHIL # 6.5 TH/MM3 (1.8-7.7); BASOPHIL % 0.4 % (0.0-2.0); EOSINOPHIL # 0.1 TH/MM3 (0-0.4); EOSINOPHIL % 1.3 % (0.0-4.0); LYMPH % 14.1 % (9.0-44.0); LYMPHOCYTE # 1.3 TH/MM3 (1.0-4.8); MEAN CELL VOLUME 86.8 FL (80.0-100.0); MEAN CORPUSCULAR HEMOGLOBIN 28.8 PG (27.0-34.0); MEAN CORPUSCULAR HGB CONC 33.2 % (32.0-36.0); MEAN PLATELET VOLUME 8.7 FL (7.0-11.0); MONO % 11.8 % (0.0-8.0); MONOCYTE # 1.1 TH/MM3 (0-0.9); NEUT % 72.4 % (16.0-70.0); PLATELET COUNT 272 TH/MM3 (150-450); RED BLOOD COUNT 3.11 MIL/MM3 (4.00-5.30); RED CELL DISTRIBUTION WIDTH 13.2 % (11.6-17.2)
[2018-03-12] MEDS: SODIUM CHLORIDE 0.9% FLUSH 10 ML FLUSH IV FLUSH SCH ×2 (08:28→20:49)
[2018-03-12] MEDS: DOCUSATE SODIUM 50 MG/SENNA 8.6 MG TAB PO SCH ×2 (08:40→20:47)
[2018-03-12 08:49] LABS: ALBUMIN 2.2 GM/DL (3.4-5.0); ALT (GPT) 31 U/L (10-53); AST (GOT) 14 U/L (15-37); BICARBONATE 28.4 MEQ/L (21.0-32.0); BLOOD UREA NITROGEN 6 MG/DL (7-18); CALCIUM 8.1 MG/DL (8.5-10.1); CHLORIDE 106 MEQ/L (98-107); CREATININE 0.41 MG/DL (0.50-1.00); GLOMERULAR FILTRATION RATE 180 ML/MIN (>89); GLUCOSE,RANDOM 79 MG/DL (74-106); MAGNESIUM 2.2 MG/DL (1.5-2.5); PHOSPHORUS 3.9 MG/DL (2.5-4.9); SODIUM (NA) 142 MEQ/L (136-145)
[2018-03-12 08:58] LABS: ALKALINE PHOSPHATASE 52 U/L (45-117); FREE T4 1.47 NG/DL (0.76-1.46); TOTAL BILIRUBIN ADULT 0.2 MG/DL (0.2-1.0)
--- NOTE | 2018-03-12 11:03 | HHI.PR ---
Subjective Remarks Patient seen and examined this morning. Afebrile vital signs stable. Patient is requiring long-term IV antibiotics. We will continue hospitalization and IV antibiotics at this time. Objective Vitals Vital Signs Date Time Temp Pulse Resp B/P (MAP) Pulse Ox O2 Delivery O2 Flow Rate FiO2 03/12/18 08:36 65 03/12/18 08:00 98.8 72 17 115/68 (84) 99 03/12/18 04:30 98.0 69 16 130/69 (89) 100 03/12/18 00:00 98.9 69 16 115/69 (84) 99 03/11/18 23:00 77 03/11/18 20:45 98.0 77 16 113/65 (81) 98 03/11/18 17:40 116 03/11/18 16:00 99.0 83 16 121/63 (82) 98 03/11/18 12:32 80 03/11/18 12:00 99.7 97 16 112/54 (73) 98 I/O 03/11/18 03/11/18 03/11/18 03/12/18 03/12/18 03/12/18 07:00 15:00 23:00 07:00 15:00 23:00 Intake Total 100 ml 100 ml 1811 ml 825 ml 100 ml Balance 100 ml 100 ml 1811 ml 825 ml 100 ml Intake Oral 800 ml 825 ml IV Total 100 ml 100 ml 1011 ml 100 ml # Voids 1 7 # Bowel Movements 0 0 Result Diagram: 03/12/18 0754 03/12/18 0754 Imaging Last Impressions Lower Extremity CT 03/06/18 0000 Signed Impressions: CONCLUSION: Trace joint effusion. Otherwise within normal limits. Knee X-Ray 03/06/18 0000 Signed Impressions: CONCLUSION: Left knee series within normal limits. Objective Remarks GEN: Well-developed, well-nourished patient. No acute distress. CV: Regular rate and rhythm without obvious murmurs LUNGS: Clear to auscultation bilaterally. Normal respiratory effort. No wheezes , rales, rhonchi. GI: Soft, nontender, nondistended. No palpable masses. Bowel sounds WNL. EXT: No edema. NEURO/PSYCH: Afocal. Awake, alert, and oriented x3. Appropriate insight and judgment. Procedures I and D left knee Date of Surgery: Mar 06, 2018 Preoperative Diagnosis: Probable septic arthritis left knee Postoperative Diagnosis: Procedure: Left knee arthrotomy with irrigation and debridement Anesthesia: General Surgeon: Rodrigo Choudhury Promotional Model(s): Saul Chan PA-C The surgical procedure was assisted by my physician child care assistant. My P.A. presence was necessary throughout this case for the manipulation and positioning of the surgical extremity. My P.A. was assisting me throughout the duration of this procedure. The skill set of a physician child care assistant was medically necessary to complete this procedure. During the surgical case the surgical services tech was working at the back table and the physician child care assistant was directly assisting me. Operation and Findings: Patient was seen and evaluated preoperatively. Patient was found to have probable infection of the left knee joint. Knee effusion and erythema were noted. Left knee aspiration revealed elevated white blood cell count with no crystals. Patient had a very elevated C-reactive protein. Informed consent was obtained after detailed discussion of risk and benefits of surgery. Operative site was marked. Patient was brought to the operating room. IV sedation and GETA were administered by anesthesiologist. Operative leg was prepped with alcohol followed by Hibiclens and draped in usual sterile fashion. Timeout procedure was performed. Procedure began with a 3 cm incision over the lateral knee. Subcutaneous tissue dissected with Bovie. Iliotibial band was opened in line with fibers. The joint was now opened through arthrotomy. A moderate volume of purulent appearing fluid was found within the knee. Specimen was obtained for cultures and sensitivities. The knee joint was manipulated. The knee joint was palpated and loculations were manually debrided. A portion of the synovium was excised. After excisional debridement was complete, the wound was thoroughly irrigated with sterile saline. At this point the wound was clean. Capsule was closed with #1 PDS, Subcutaneous tissues closed with 3-0 PDS and skin was closed with 3-0 nylon. A DONNY drain was placed into the wound. Sterile dressings were applied. Patient was awakened and transferred to recovery in stable condition. Needle and sponge counts were correct Rodrigo Choudhury MD Mar 06, 2018 11:58 Medications and IVs Current Medications Medications (Trade) Dose Ordered Sig/Nighat Route Start Time Stop Time Status Last Admin Sodium Chloride 1,000 ml @ 100 mls/hr Q10H IV 03/06/18 06:10 03/12/18 04:48 (NS Flush) 2 ml UNSCH PRN IV FLUSH 03/06/18 06:15 03/09/18 16:14 (NS Flush) 2 ml BID IV FLUSH 03/06/18 09:00 03/11/18 20:26 (Reglan Inj) 5 mg Q6H PRN IV PUSH 03/06/18 06:15 (Tylenol) 650 mg Q6H PRN PO 03/06/18 06:15 03/07/18 04:39 (Morphine Inj) 2 mg Q3H PRN IV PUSH 03/06/18 06:15 03/10/18 08:23 (Mary Jo-Colace) 1 tab BID PO 03/06/18 09:00 03/12/18 08:40 (Milk Of Magnesia Liq) 30 ml Q12H PRN PO 03/06/18 06:15 (Senokot) 17.2 mg Q12H PRN PO 03/06/18 06:15 03/07/18 08:50 (Dulcolax Supp) 10 mg DAILY PRN RECTAL 03/06/18 06:15 (Lactulose Liq) 30 ml DAILY PRN PO 03/06/18 06:15 (Zofran Odt) 4 mg Q4H PRN PO 03/06/18 12:30 (Benadryl) 25 mg Q6H PRN PO 03/06/18 12:00 (Osco 7.5-325 Mg) 1 tab Q4H PRN PO 03/07/18 07:00 Future hold 03/12/18 08:40 (Osco 5-325 Mg) 1 tab Q4H PRN PO 03/07/18 07:00 Future hold (Motrin) 600 mg Q6H PO 03/08/18 19:00 03/12/18 06:22 Oxacillin Sodium 2 gm/Sodium Chloride 100 ml @ 200 mls/hr Q4H IV 03/08/18 20:00 03/12/18 08:41 (Melatonin) 5 mg HS PRN PO 03/08/18 20:30 03/08/18 22:10 A/P Problem List: (1) Sepsis ICD Code: A41.9 - Sepsis, unspecified organism Status: Acute (2) Left knee pain ICD Code: M25.562 - Pain in left knee Status: Acute Assessment and Plan This is a 33-year-old female who presents to the emergency room complaining of left knee pain and swelling with decreased range of motion. She also has fever. In the emergency department, joint aspiration was performed with cloudy yellow aspirate. Likely Septic joint, left knee. Synovial fluid WBC over 31,000. Continue IV OXACILLIN and pain management with hydrocodone and morphine sulfate. Patient counseled regarding narcotics. WOUNDD care. Follow-up cultures. -- AWAIT ID CLEARANCE Gram-positive cocci bacteremia. Continue OXACILLIN and consult infectious disease Hypokalemia. Replace with 30 mEq p.o. potassium 1. --WILL REPLACE AGAIN Abnormal urinalysis. No UTI symptoms. Follow-up urine culture Polysubstance abuse. Counseled DVT prophylaxis with SCD and early ambulation ID has been consulted A.m. labs Scheduled ibuprofen for pain control Discussed with patient and ambulatory analyst Planning Await infectious disease clearance Problem Qualifiers (1) Sepsis: Qualified Codes: A41.9 - Sepsis, unspecified organism (2) Left knee pain: Qualified Codes: M25.562 - Pain in left knee Osei Guerrero MD R3 Mar 12, 2018 11:03
[2018-03-12 13:38] LABS: HEMOGLOBIN A1C 5.6 % (4.3-6.0)
[2018-03-13] MEDS: ACETAMINOPHEN/HYDROcodone 325 MG/7.5 MG TAB PO PRN ×6 (00:45→21:08)
[2018-03-13] MEDS: OXACILLIN INJ 2 GM in SODIUM CHLORIDE 0.9% INJ 100 ML IV SCH ×6 (00:45→21:05)
[2018-03-13] MEDS: IBUPROFEN 600 MG TAB PO SCH ×4 (00:45→18:19)
[2018-03-13 01:00] VITALS: BP 130/66; PULSE 80; RESP 19; TEMP 98; O2SAT 97
[2018-03-13 05:50] VITALS: BP 103/61; PULSE 72; RESP 16; TEMP 98; O2SAT 100
[2018-03-13 08:00] VITALS: BP 127/65; PULSE 62; RESP 16; TEMP 98.8; O2SAT 99
[2018-03-13] MEDS: DOCUSATE SODIUM 50 MG/SENNA 8.6 MG TAB PO SCH ×2 (08:38→21:00)
[2018-03-13] MEDS: SODIUM CHLORIDE 0.9% FLUSH 10 ML FLUSH IV FLUSH SCH ×2 (08:39→21:05)
[2018-03-13 09:51] LABS: HEMATOCRIT 30.1 % (35.0-46.0); MEAN CELL VOLUME 87.7 FL (80.0-100.0); MEAN CORPUSCULAR HGB CONC 33.1 % (32.0-36.0); MEAN PLATELET VOLUME 8.4 FL (7.0-11.0); PLATELET COUNT 320 TH/MM3 (150-450); RED BLOOD COUNT 3.43 MIL/MM3 (4.00-5.30); RED CELL DISTRIBUTION WIDTH 13.3 % (11.6-17.2); WHITE BLOOD COUNT 8.2 TH/MM3 (4.0-11.0)
[2018-03-13 10:13] LABS: BICARBONATE 26.4 MEQ/L (21.0-32.0); CALCIUM 7.8 MG/DL (8.5-10.1); CREATININE 0.48 MG/DL (0.50-1.00)
[2018-03-13 12:00] VITALS: BP 122/68; PULSE 71; RESP 19; TEMP 98.9; O2SAT 99
--- NOTE | 2018-03-13 15:40 | HHI.PR ---
Subjective Remarks Follow-up left knee infection. Patient states that her knee is less painful today. Still with some serosanguineous drainage from the prior drain site. No other complaints at this time. Objective Vitals Vital Signs Date Time Temp Pulse Resp B/P (MAP) Pulse Ox O2 Delivery O2 Flow Rate FiO2 03/13/18 08:00 98.8 62 16 127/65 (85) 99 03/13/18 05:50 98.0 72 16 103/61 (75) 100 03/13/18 01:00 98.0 80 19 130/66 (87) 97 03/12/18 20:50 98.7 88 18 120/70 (87) 98 03/12/18 16:00 98.4 74 18 121/78 (92) 99 I/O 03/12/18 03/12/18 03/12/18 03/13/18 03/13/18 03/13/18 07:00 15:00 23:00 07:00 15:00 23:00 Intake Total 825 ml 600 ml 1770 ml 900 ml 200 ml Balance 825 ml 600 ml 1770 ml 900 ml 200 ml Intake Oral 825 ml 1670 ml 900 ml IV Total 600 ml 100 ml 200 ml # Voids 7 7 4 # Bowel Movements 0 1 0 Result Diagram: 03/13/18 0913 03/13/18 0913 Imaging Last Impressions Lower Extremity CT 03/06/18 0000 Signed Impressions: CONCLUSION: Trace joint effusion. Otherwise within normal limits. Knee X-Ray 03/06/18 0000 Signed Impressions: CONCLUSION: Left knee series within normal limits. Objective Remarks Examined in the presence of the nurse General: No acute distress. Heart: Regular rate and rhythm. No murmur. Lungs: Clear to auscultation bilaterally. No wheezes, rales, or rhonchi. Breathing is nonlabored. Abdomen: Soft, nontender, nondistended. Extremities: No lower extremity edema. Left knee bandaged. Small amount of serosanguineous drainage. Mild swelling around the left knee. Psych: Alert and oriented. Neuro: Normal speech. No focal deficits noted. Procedures 03/06/18 left knee arthrotomy with irrigation and debridement Urinary Catheter: No Vascular Central Line Catheter: No A/P Problem List: (1) Sepsis ICD Code: A41.9 - Sepsis, unspecified organism Status: Acute (2) Left knee pain ICD Code: M25.562 - Pain in left knee Status: Acute Assessment and Plan 1. Septic joint, left knee: Status post irrigation and debridement by orthopedic surgery. Continue wound care. Continue IV antibiotics. Appreciate infectious disease recommendations. 2. Bacteremia: Continue oxacillin. Appreciate infectious disease recommendations. Repeat blood cultures are negative. 3. Hypokalemia: Improved. 4. Abnormal UA: No urinary symptoms. Urine culture negative. 5. History of polysubstance abuse: Patient has been counseled. 6. DVT prophylaxis: SCDs, ambulation. Discharge Planning Plan for discharge home when cleared by infectious disease if outpatient antibiotics can be arranged. Problem Qualifiers (1) Sepsis: Qualified Codes: A41.9 - Sepsis, unspecified organism (2) Left knee pain: Qualified Codes: M25.562 - Pain in left knee Bernardo Rubio MD Mar 13, 2018 15:40
--- NOTE | 2018-03-13 15:53 | HHI.IDPN ---
Subjective Subjective Remarks her knee pain is better afebrile repeat BC negative 2 D echo w/o vegetations Antibiotics oxacillin Allergies: Coded Allergies: No Known Allergies (Unverified , 03/06/18) Objective . Vital Signs Date Time Temp Pulse Resp B/P (MAP) Pulse Ox O2 Delivery O2 Flow Rate FiO2 03/13/18 12:00 98.9 71 19 122/68 (86) 99 03/13/18 08:00 98.8 62 16 127/65 (85) 99 03/13/18 05:50 98.0 72 16 103/61 (75) 100 03/13/18 01:00 98.0 80 19 130/66 (87) 97 03/12/18 20:50 98.7 88 18 120/70 (87) 98 03/12/18 16:00 98.4 74 18 121/78 (92) 99 03/13/18 03/13/18 03/14/18 15:00 23:00 07:00 Intake Total 200 ml Balance 200 ml IV Total 200 ml . Laboratory Tests Test 03/12/18 07:54 03/13/18 09:13 White Blood Count 9.0 TH/MM3 8.2 TH/MM3 Red Blood Count 3.11 MIL/MM3 3.43 MIL/MM3 Hemoglobin 9.0 GM/DL 10.0 GM/DL Hematocrit 27.0 % 30.1 % Mean Corpuscular Volume 86.8 FL 87.7 FL Mean Corpuscular Hemoglobin 28.8 PG 29.0 PG Mean Corpuscular Hemoglobin Concent 33.2 % 33.1 % Red Cell Distribution Width 13.2 % 13.3 % Platelet Count 272 TH/MM3 320 TH/MM3 Mean Platelet Volume 8.7 FL 8.4 FL Neutrophils (%) (Auto) 72.4 % Lymphocytes (%) (Auto) 14.1 % Monocytes (%) (Auto) 11.8 % Eosinophils (%) (Auto) 1.3 % Basophils (%) (Auto) 0.4 % Neutrophils # (Auto) 6.5 TH/MM3 Lymphocytes # (Auto) 1.3 TH/MM3 Monocytes # (Auto) 1.1 TH/MM3 Eosinophils # (Auto) 0.1 TH/MM3 Basophils # (Auto) 0.0 TH/MM3 CBC Comment DIFF FINAL Differential Comment Laboratory Tests Test 03/12/18 07:54 03/13/18 09:13 Blood Urea Nitrogen 6 MG/DL 8 MG/DL Creatinine 0.41 MG/DL 0.48 MG/DL Random Glucose 79 MG/DL 86 MG/DL Total Protein 6.0 GM/DL Albumin 2.2 GM/DL Calcium Level 8.1 MG/DL 7.8 MG/DL Phosphorus Level 3.9 MG/DL Magnesium Level 2.2 MG/DL Alkaline Phosphatase 52 U/L Aspartate Amino Transf (AST/SGOT) 14 U/L Alanine Aminotransferase (ALT/SGPT) 31 U/L Total Bilirubin 0.2 MG/DL Sodium Level 142 MEQ/L 140 MEQ/L Potassium Level 3.8 MEQ/L 3.5 MEQ/L Chloride Level 106 MEQ/L 104 MEQ/L Carbon Dioxide Level 28.4 MEQ/L 26.4 MEQ/L Anion Gap 8 MEQ/L 10 MEQ/L Estimat Glomerular Filtration Rate 180 ML/MIN 150 ML/MIN Hemoglobin A1c 5.6 % Free Thyroxine 1.47 NG/DL Thyroid Stimulating Hormone 3rd Gen 1.180 uIU/ML Imaging Last Impressions Lower Extremity CT 03/06/18 0000 Signed Impressions: CONCLUSION: Trace joint effusion. Otherwise within normal limits. Knee X-Ray 03/06/18 0000 Signed Impressions: CONCLUSION: Left knee series within normal limits. Physical Exam CONSTITUTIONAL/GENERAL: This is an adequately nourished patient, in apparent distress due to knee pain TUBES/LINES/DRAINS: SKIN: No jaundice, rashes, or lesions. CARDIOVASCULAR: Regular rate and rhythm without murmurs, gallops, or rubs. No JVD. Peripheral pulses symmetric. RESPIRATORY/CHEST: Symmetric, unlabored respirations. Clear to auscultation. Breath sounds equal bilaterally. No wheezes, rales, or rhonchi. GASTROINTESTINAL: Abdomen soft, non-tender, nondistended. No hepato-splenomegaly , or palpable masses. No guarding. Bowel sounds present. MUSCULOSKELETAL: Extremities without clubbing, cyanosis, or edema. LLE :incision well approximated; no drainage, minimal erythema around no edema NEUROLOGICAL: Awake and alert. Motor and sensory grossly within normal limits. Follows commands. Cognitively sharp. Moves all extremities. PSYCHIATRIC: distressed, crying from pain Assessment & Plan Remarks L septic knee, MRSA - culture negative, but cell count diff/ clin presentation cw payton infx MSSA sepsis - high grade cont oxacillin other option is cefazoline both abx can be done on a pump as o/p anticipate 4 weeks post op PICC OPAT Mckenzie Dillon MD Mar 13, 2018 15:53
--- NOTE | 2018-03-13 15:55 | HHI.FF ---
Infusion Therapy Location of Infusion Therapy: Ambulatory Infusion Therapy Order Patient Information Patient Weight 45 kg Diagnosis: Coded Allergies: No Known Allergies (Unverified , 03/06/18) Administer Medication Oxacillin 12 grams IV Continuous with pump Start Treatment: Mar 13, 2018 Stop Treatment: Apr 06, 2018 Additional Information Venous access: PICC Line Additional Instructions [x] Peripheral flush and dressing changes per protocol [x] Implanted port and central class a lineman: * Implanted port: 10 ml Normal Saline followed by 5 ml Heparin 100 units/ml Heparin flush after each use and monthly to maintain. [] May leave port accessed during therapy. [] May leave peripheral site accessed for duration of therapy. [x] If patient has SOB or respiratory distress, check oxygen saturation. If less than 90% or clinical signs of respiratory distress, administer oxygen at 2 L/min. via nasal cannula and notify physician. [x] Anaphylaxis/Reaction orders: * Stop infusion. * Keep IV line open with saline flush. * Notify physician. * Monitor vital signs every 15 minutes until symptoms resolve. * Check Oxygen saturation; Oxygen at 2 L/min. via nasal cannula if less than 90% or clinical signs of respiratory distress. * Administer diphenhydramine (Benadryl) 25 mg IV STAT, (unless patient has received as pre-med). May repeat once, if necessary. * Solu-Cortef 250 mg IVP over 30-60 seconds, use 100 mg vials for each dissolution. * Epinephrine (1mg/1 ml) 0.3 mg subcutaneously or IVP now with any signs of respiratory distress. * Check with physician for new additional pre-med orders if patient is re- challenged or re-treated. [x] May remove PICC line when treatment complete, after confirming with Physician. [x] If the patient is admitted to the hospital, the ED, or transferred via [facility] , complete transfer form including medication reconciliation order sheet. Laboratory Tests Weekly Labs: CBC w/diff, CMP Mckenzie Dillon MD Mar 13, 2018 15:55
[2018-03-13] MEDS ORDERED: EPIN1INJ21 IV PUSH (15:56)
[2018-03-13] MEDS ORDERED: SOLU250I IV PUSH (15:56)
[2018-03-13] MEDS ORDERED: EPIN1INJ21 SQ (15:56)
[2018-03-13] MEDS ORDERED: [UNRECOGNIZED DRUG - CODE] IV (15:56)
[2018-03-13 16:00] VITALS: BP 124/77; PULSE 78; RESP 18; TEMP 99.1; O2SAT 99
[2018-03-13] MEDS ORDERED: SODIUM CHLORIDE 0.9% FLUSH 10 ML FLUSH IV FLUSH PRN (18:00)
[2018-03-13 20:00] VITALS: BP 125/73; PULSE 85; RESP 18; TEMP 99.5; O2SAT 99
[2018-03-14] VITALS: BP 114/71; PULSE 73; RESP 18; TEMP 98.8; O2SAT 99
[2018-03-14] MEDS: OXACILLIN INJ 2 GM in SODIUM CHLORIDE 0.9% INJ 100 ML IV SCH ×3 (00:48→08:41)
[2018-03-14] MEDS: IBUPROFEN 600 MG TAB PO SCH ×2 (00:48→06:35)
[2018-03-14] MEDS: ACETAMINOPHEN/HYDROcodone 325 MG/7.5 MG TAB PO PRN ×3 (00:52→08:38)
[2018-03-14] MEDS: MORPHINE SULFATE 4 MG/ML INJ IV PUSH PRN (01:30)
[2018-03-14 04:00] VITALS: BP 126/78; PULSE 68; RESP 18; TEMP 99.1; O2SAT 99
[2018-03-14 08:05] VITALS: BP 121/75; PULSE 74; RESP 20; TEMP 98.3; O2SAT 99
[2018-03-14] MEDS: DOCUSATE SODIUM 50 MG/SENNA 8.6 MG TAB PO SCH (08:39)
[2018-03-14] MEDS: SODIUM CHLORIDE 0.9% FLUSH 10 ML FLUSH IV FLUSH SCH (09:00)
[2018-03-14] MEDS ORDERED: SODIUM CHLORIDE 0.9% FLUSH 10 ML FLUSH IV FLUSH SCH (09:00)
[2018-03-14] MEDS ORDERED: HYDR-3516 PO (10:19)
--- NOTE | 2018-03-14 10:20 | HHI.DCPOC ---
Discharge Care Plan Diagnosis: (1) Sepsis (2) Leukocytosis (3) Left knee pain (4) Septic joint of left knee joint (5) Hypokalemia Goals to Promote Your Health * To prevent worsening of your condition and complications * To maintain your health at the optimal level Directions to Meet Your Goals Take your medications as prescribed Follow your dietary instruction Follow activity as directed Keep your appointments as scheduled Take your immunizations and boosters as scheduled If your symptoms worsen call your PCP, if no PCP go to Urgent Care Center or Emergency Room Smoking is Dangerous to Your Health. Avoid second hand smoke Call the 24-hour hour crisis hotline for domestic abuse at Bernardo Rubio MD Mar 14, 2018 10:20
--- NOTE | 2018-03-14 10:31 | HHI.DS ---
Discharge Summary Admission Date Mar 06, 2018 at 06:17 Discharge Date: Mar 14, 2018 Admitting Diagnosis left knee pain r/o septic arthritis, sepsis (1) Sepsis ICD Code: A41.9 - Sepsis, unspecified organism Status: Acute (2) Left knee pain ICD Code: M25.562 - Pain in left knee Status: Acute (3) Leukocytosis ICD Code: D72.829 - Elevated white blood cell count, unspecified Status: Acute (4) Hypokalemia ICD Code: E87.6 - Hypokalemia (5) Septic joint of left knee joint ICD Code: M00.9 - Pyogenic arthritis, unspecified Procedures 03/06/18 left knee arthrotomy with irrigation and debridement Brief History - From Admission This is a 33-year-old female who presents to the emergency room complaining of left knee pain. 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 Over the past several days, her left knee pain has worsened temporarily relieved with icing and elevation. It is severe that she is unable to bear weight. She denies IV drug use but admits to marijuana and cocaine. No history of STD or [employer] complaints. Does not remember recent significant trauma or sustaining an open wound. Reports of low-grade fever. In the emergency department, joint aspiration was performed with cloudy yellow aspirate. She was then given IV vancomycin and Zosyn. Currently seen in the preop area awaiting orthopedic intervention. All other systems reviewed negative CBC/BMP: 03/13/18 0913 03/13/18 0913 Significant Findings Laboratory Tests Test 03/11/18 10:31 03/12/18 07:54 03/13/18 09:13 Red Blood Count 3.35 MIL/MM3 (4.00-5.30) 3.11 MIL/MM3 (4.00-5.30) 3.43 MIL/MM3 (4.00-5.30) Hemoglobin 9.8 GM/DL (11.6-15.3) 9.0 GM/DL (11.6-15.3) 10.0 GM/DL (11.6-15.3) Hematocrit 29.2 % (35.0-46.0) 27.0 % (35.0-46.0) 30.1 % (35.0-46.0) Neutrophils (%) (Auto) 80.1 % (16.0-70.0) 72.4 % (16.0-70.0) Monocytes (%) (Auto) 8.7 % (0.0-8.0) 11.8 % (0.0-8.0) Neutrophils # (Auto) 8.2 TH/MM3 (1.8-7.7) Blood Urea Nitrogen 6 MG/DL (7-18) 6 MG/DL (7-18) Random Glucose 135 MG/DL (74-106) Total Protein 6.2 GM/DL (6.4-8.2) 6.0 GM/DL (6.4-8.2) Albumin 2.3 GM/DL (3.4-5.0) 2.2 GM/DL (3.4-5.0) Potassium Level 3.3 MEQ/L (3.5-5.1) Monocytes # (Auto) 1.1 TH/MM3 (0-0.9) Creatinine 0.41 MG/DL (0.50-1.00) 0.48 MG/DL (0.50-1.00) Calcium Level 8.1 MG/DL (8.5-10.1) 7.8 MG/DL (8.5-10.1) Aspartate Amino Transf (AST/SGOT) 14 U/L (15-37) Free Thyroxine 1.47 NG/DL (0.76-1.46) Imaging Last Impressions Lower Extremity CT 03/06/18 0000 Signed Impressions: CONCLUSION: Trace joint effusion. Otherwise within normal limits. Knee X-Ray 03/06/18 0000 Signed Impressions: CONCLUSION: Left knee series within normal limits. PE at Discharge Examined in the presence of the nurse General: No acute distress. Heart: Regular rate and rhythm. No murmur. Lungs: Clear to auscultation bilaterally. No wheezes, rales, or rhonchi. Breathing is nonlabored. Abdomen: Soft, nontender, nondistended. Extremities: No lower extremity edema. Left knee bandaged. Small amount of serosanguineous drainage. Mild swelling around the left knee. Psych: Alert and oriented. Neuro: Normal speech. No focal deficits noted. Pt update on day of discharge The patient states that she feels better today. Still with some pain in the left knee, but less than yesterday. Bandage was changed this morning. Only minor drainage. No other complaints at this time. Wants to go home today. She denies history of IV drug abuse. Hospital Course The patient was admitted for management of septic left knee joint. Orthopedic surgery was consulted. Patient was continued on antibiotics. Infectious disease was consulted. Left knee arthrotomy with irrigation and debridement was done on 03/06/18. The patient continued to show improvement postoperatively. Repeat blood cultures were negative. The patient was cleared for discharge by orthopedic surgery and infectious disease. Arrangements were made for outpatient IV antibiotics to complete 4 weeks postoperative antibiotic therapy. Pt Condition on Discharge: Stable Discharge Disposition: Discharge Home Discharge Time: > 30 minutes Discharge Instructions DIET: Follow Instructions for: As Tolerated, No Restrictions Activities you can perform: Regular-No Restrictions Follow up Referrals: Appointment for Follow Up Orthopedics - 2 Weeks @ [facility] with Rodrigo Negron MD PCP Follow-up - 1 Week New Medications: Epinephrine Inj (Epinephrine Inj) 1 Mg/Ml (1 Ml) Inj 0.3 MG IV PUSH ONCE PRN for ALLERGIC REACTION, #1 VIAL Epinephrine Inj (Epinephrine Inj) 1 Mg/Ml (1 Ml) Inj 0.3 MG SQ ONCE PRN for ALLERGIC REACTION, #1 VIAL Give with any signs of respiratory distress. Hydrocortisone Inj (Solu-Cortef Inj) 250 Mg/2 Ml Inj 250 MG IV PUSH ONCE PRN for ALLERGIC REACTION, #1 VIAL 0 Refills Give over 30-60 seconds. Oxacillin Inj (Oxacillin Inj) 10 Gram Inj 12 GM IV CONTINUOUS for Infection for 28 Days, BAG Hydrocodone/Acetaminophen (Hydrocodone-Acetamin 5-325 mg) 5 Mg-325 Mg Tablet 1 TAB PO Q6HR PRN for PAIN SCALE 1 TO 10 for 3 Days, #12 TAB 0 Refills Bernardo Rubio MD Mar 14, 2018 10:31
[2018-03-14] MEDS ORDERED: WALKER/ADULT/FO1 MIS (11:15)
[2018-03-14 11:56] VITALS: BP 122/75; PULSE 91; RESP 20; TEMP 98.9; O2SAT 98
[2018-03-14 20:00] VITALS: BP 162/73; PULSE 90; RESP 18; TEMP 98; O2SAT 95
== END 2018-03-14 13:15 | disposition home or self-care (01) | DRG 854 ==
LOC: NEPC 03:46 → NEDA 06:17 → EEVIPCON 06:17 → NEPFCDU 08:12 → N07B 11:40 → NEDH 12:40 → NEPFCDU 13:48 → N05B 03-07 16:35
PROVIDERS: ADMIT Family Medicine; ATTEND Family Medicine
PROC: 0S9D00Z Drainage of Left Knee Joint with Drainage Device, Open Approach (ICD-10-PCS; 2018-03-06)
PROC: 0S9D3ZZ Drainage of Left Knee Joint, Percutaneous Approach (ICD-10-PCS; 2018-03-06)
PROC: 0SBD0ZZ Excision of Left Knee Joint, Open Approach (ICD-10-PCS; principal; 2018-03-06 11:28)
DX: A41.01 Sepsis due to Methicillin susceptible Staphylococcus aureus (principal); M00.9 Pyogenic arthritis, unspecified; M25.462 Effusion, left knee; E87.6 Hypokalemia; R82.90 Unspecified abnormal findings in urine; F17.210 Nicotine dependence, cigarettes, uncomplicated; F14.10 Cocaine abuse, uncomplicated; F12.10 Cannabis abuse, uncomplicated
CPT/HCPCS: 73564; 73701; 80048; 80053; 80202; 80307; 81001; 82550; 82945; 83036; 83605; 83735; 84100; 84157; 84439; 84443; 84484; 84702; 84703; 85025; 85027; 85610; 85652; 85730; 86140; 87015; 87040; 87070; 87086; 87102; 87116; 87186; 87205; 87206; 89051; 89060; 93005; 93308; 94150; 96361; 96374; J0131; J0330; J0690; J0692; J1100; J1170; J1580; J1642; J1885; J2270; J2543; J2700; J3010; J3370; J7030; J7040; J7050; J7120; Q9967